=== PATIENT | male | born 1950 | race Caucasian/White ===

== ENCOUNTER 2021-11-11 19:13 | Emergency (ER) | payer MEDICARE, SELFPAY ==
[2021-11-11 19:14] VITALS: BP 98/74; PULSE 95; RESP 18; TEMP 35.9; O2SAT 95; BMI 24.3
--- NOTE | 2021-11-11 19:20 | RAD_ITS ---
EXAM: XR LEFT FOOT COMPLETE, 3 OR MORE VIEWS CLINICAL INDICATION: PAIN TECHNIQUE: Frontal, lateral and oblique views of the left foot. This report was created using [employer] report generation technology. COMPARISON: None. FINDINGS: BONES/JOINTS: Metatarsophalangeal arthrosis of the first digit. There is an enthesophyte involving the posterior superior calcaneus at the site of insertion of the Achilles tendon. No acute fracture. No subluxation. Normal alignment. Preservation of the joint space. No sclerotic or destructive changes observed. SOFT TISSUES: Unremarkable. No soft tissue swelling or gas. No radiopaque foreign body. RAD/Foot min 3 Views IMPRESSION: Metatarsophalangeal arthrosis of the first digit. Electronically Signed: Len Platt MD at 19:54 EDT Reading Location ID and State: [facility] / [place] , Service support ,
--- NOTE | 2021-11-11 21:06 | ED.VIS.LOWEX ---
HPI History of Present Illness Chief Complaint: Lower Extremity Injury Narrative Narrative: 70-year-old male presenting with left toe pain. He states that he initially had a excoriation on the left toe which was seen by urgent care. He was on Keflex and this improved however when he finished the Keflex he got worse. He did not follow-up with his primary care physician. He denies any systemic signs or symptoms. He states that his left small toenail is digging into the left second toe on his foot. He states has been trying to change his boots but this is not helping. He has a previous abscessed area on the calcaneus which is healed. PFSH PFSH Home Medications doxycycline hyclate 100 mg PO BID #14 cap 11/11/21 [Rx Last Taken Unknown] Allergy/AdvReac Type Severity Reaction Status Date / Time No Known Allergies Allergy Verified 11/11/21 19:18 ROS ROS ED Constitutional Constitutional ED: Denies chills or fever(s) Eyes Eyes: Denies blurry vision or change in vision ENT ENT ED: Denies rhinorrhea or sore throat Cardiovascular Cardiovascular: Denies chest pain or palpitations Respiratory/Chest Respiratory/Chest: Denies cough or dyspnea Gastrointestinal Gastrointestinal: Denies abdominal pain or nausea Genitourinary Genitourinary ED: Denies dysuria or hematuria Musculoskeletal Musculoskeletal: Denies arthralgias or myalgias Integumentary Reports rash and other Details: Left fourth and fifth toe pain Neurologic Neurologic: Denies headache(s) or weakness EXAM Physical Exam Const Vital Signs: 11/11/21 19:14 Temperature 96.6 F L Temperature Source Temporal Pulse Rate 95 Respiratory Rate 18 Blood Pressure 98/74 Blood Pressure Mean 82 Pulse Ox 95 Oxygen Delivery Method Room Air Positive well nourished General Appearance ED: NAD HEENT normocephalic and atraumatic Resp normal respiratory effort Cardio regular rate and regular rhythm Extremity Extremity Narrative: Left fifth toe erythematous medially. The toenail is intact. There is no fluctuance. The left fifth toe on the lateral aspect is irritated. No bony tenderness to the left foot is neurovascularly intact brisk cap refill to all 5 toes. Neuro oriented x3 Sensorium / Orientation: alert MDM MDM MDM Narrative Medical decision making narrative: Patient presenting with infection of the left fifth toe. There is no abscess or need for drainage. X-ray of the left foot on my interpretation shows no acute fracture or subluxation. Patient counseled on warm water soaks with soapy water and I will start him on a new antibiotic as this is returned. Patient will be given follow-up with podiatry. He is amenable this plan. Patient discharged in stable condition. Impression: 1. Left foot cellulitis Radiography Diagnostic Testing: Clinical Impression(s) from Imaging Studies Foot X-Ray 11/11/21 19:20 IMPRESSION: Metatarsophalangeal arthrosis of the first digit. Electronically Signed: Len Platt MD at 19:54 EDT Reading Location ID and State: [facility] / [place] , Service support , Discharge Plan Triage Chief Complaint: Lower Extremity Injury ED Provider: Mak Robb Dx/Rx/DC Orders Instructions: ED Cellulitis Prescriptions: New doxycycline hyclate 100 mg capsule 100 mg PO BID Qty: 14 RF: 0 Primary Care Provider: NOT,DEFINED Referrals: Robert Mccormick DPM [STAFF PHYSICIAN] - As soon as possible NOT,DEFINED [Primary Care Provider] - Disposition Disposition: Home, Self Care
[2021-11-11] MEDS: Doxycycline 100 MG CAPSULE PO (21:21)
== END 2021-11-11 21:20 | disposition home or self-care (01) ==
LOC: ED 21:29
PROVIDERS: Emergency Provider Student in an Organized Health Care Education/Training Program; Visit Provider Student in an Organized Health Care Education/Training Program
DX: L03.116 Cellulitis of left lower limb (principal); L03.032 Cellulitis of left toe
CPT/HCPCS: 73630; 99283

== ENCOUNTER 2021-12-09 16:48 | Outpatient (CLI) | payer MEDICARE, SELFPAY ==
--- NOTE | 2021-12-09 16:50 | CT_ITS ---
EXAM: CT ANGIOGRAPHY ABDOMEN AND PELVIS WITH RUNOFF TO THE LOWER EXTREMITIES WITH INTRAVENOUS CONTRAST CLINICAL INDICATION: ATHEROSCLEROSIS TECHNIQUE: Helically acquired angiography images were obtained of the abdomen, pelvis and lower extremities with intravenous contrast using CTA runoff protocol. This CT exam was performed using one or more of the following dose reduction techniques: automated exposure control, adjustment of the mA and/or kV according to patient size, and/or use of iterative reconstruction technique. This report was created using [employer] report generation technology. MIP reconstructed images were created and reviewed. CONTRAST: IV 100mL Isovue-370 RADIATION DOSE: CTDIvol = 7.24 mGy, DLP = 1100.95 mGy-cm. COMPARISON: None. FINDINGS: VASCULATURE: AORTA: Diffuse atherosclerotic changes of the aorta. There is a focal stenosis greater than 50% involving the aorta about 5 cm below the renal arteries with severe atherosclerotic changes below this to the level of the common iliac arteries. Normal caliber abdominal aorta. No dissection. CELIAC TRUNK AND MESENTERIC ARTERIES: No acute findings. No occlusion or significant stenosis. No dissection. RENAL ARTERIES: No acute findings. No occlusion or significant stenosis. No dissection. RIGHT ILIAC ARTERIES: Severe atherosclerotic changes of the right common iliac artery with a focal area measuring greater than 50% stenosis. Focal area in the proximal right external iliac artery with greater than 50% stenosis. RIGHT FEMORAL/POPLITEAL ARTERIES: High-grade stenosis of the right common femoral artery with complete occlusion of the right superficial femoral artery. Reconstitution of the right popliteal artery in the popliteal fossa. Normal runoff of the right anterior tibial artery. No runoff in the posterior tibial and peroneal arteries. There is some reconstitution of the right peroneal artery distally. RIGHT CALF/FOOT ARTERIES: See above. LEFT ILIAC ARTERIES: Moderate to severe atherosclerotic changes left common iliac artery without hemodynamically significant stenosis. Moderate atherosclerotic changes of the left external iliac artery with complete occlusion of the distal left external iliac artery and left common femoral artery. Reconstitution of the deep femoral artery through collaterals. Complete occlusion of the left superficial femoral artery. LEFT FEMORAL/POPLITEAL ARTERIES: Reconstitution of the left popliteal artery in the popliteal fossa. LEFT CALF/FOOT ARTERIES: Occlusion of the left anterior tibial artery proximally. Normal runoff of the left posterior tibial and left peroneal arteries. Reconstitution of the left anterior tibial artery just above the ankle. Left dorsalis pedis artery not visualized. LOWER THORAX: Unremarkable. Lung bases are clear. No cardiomegaly. No significant pericardial effusion. ABDOMEN: LIVER: Unremarkable. Homogeneous. No focal mass. GALLBLADDER AND BILE DUCTS: Unremarkable. No calcified gallstones. No gallbladder distention or wall edema. No intra- or extrahepatic biliary ductal dilation. PANCREAS: Unremarkable. No focal cystic or solid mass. SPLEEN: Unremarkable. Normal size without focal cystic or solid mass. ADRENALS: Unremarkable. No nodules. KIDNEYS AND URETERS: Unremarkable. Normal renal size and position. No hydronephrosis. STOMACH AND BOWEL: Unremarkable. No stomach or bowel distention. No focal inflammatory change. PELVIS: APPENDIX: No evidence of acute appendicitis. BLADDER: Unremarkable. REPRODUCTIVE: Unremarkable as visualized. No mass. ABDOMEN, PELVIS and LOWER EXTREMITIES: INTRAPERITONEAL SPACE: Unremarkable. No ascites or other fluid collection. No free air. BONES/JOINTS: Unremarkable. No suspicious lytic or blastic abnormality. SOFT TISSUES: Unremarkable. No discrete abdominal or pelvic wall hernia. LYMPH NODES: Unremarkable. No enlarged lymph nodes. CT/CTA Abd w/Runoff W/WO Contrast IMPRESSION: 1. Diffuse severe atherosclerotic changes of the infrarenal abdominal aorta with a focal area of stenosis greater than 50%. 2. Severe atherosclerotic changes of the right common iliac artery with a focal area measuring greater than 50% stenosis. 3. Focal area of greater than 50% stenosis in the proximal right external iliac artery. 4. High-grade stenosis of the right common femoral artery with complete occlusion of the right superficial femoral artery. Reconstitution of the right popliteal artery in the popliteal fossa. Normal runoff in the right anterior tibial artery with no runoff in the posterior tibial and peroneal arteries. It is some reconstitution of the right peroneal artery distally. 5. Complete occlusion of the distal left external iliac artery and left common femoral artery. Reconstitution of the deep femoral artery through collaterals. Complete occlusion of the left superficial femoral artery. Reconstitution of the left popliteal artery and the popliteal fossa. Occlusion of the left anterior tibial artery proximally. Normal runoff of the left posterior tibial and left peroneal arteries. Reconstitution of the left anterior tibial artery just above the ankle. Left dorsalis pedis artery is not visualized. Electronically Signed: Alberto Tong MD at 4:58 EDT ,
[2021-12-09 17:16] LABS: CREATININE FINGERSTICK 0.9 mg/dL (0.70-1.30); EGFR FINGERSTICK > 60.0000 mL/min (>60)
== END 2021-12-09 23:59 | disposition home or self-care (01) ==
LOC: CT 16:49
PROVIDERS: PCP Clinical Nurse Specialist; Visit Provider Surgery Vascular Surgery
DX: I70.213 Atherosclerosis of native arteries of extremities with intermittent claudication, bilateral legs (principal); I77.4 Celiac artery compression syndrome; I21.3 ST elevation (STEMI) myocardial infarction of unspecified site
CPT/HCPCS: 75635; Q9967; A4216

== ENCOUNTER 2021-12-17 10:15 | Outpatient (RCR) | payer MEDICARE, SELFPAY ==
[2021-12-05 10:06] VITALS: BP 145/70; PULSE 94; TEMP 35.8
--- NOTE | 2021-12-05 11:07 | PCM.WC.HP ---
History of Present Illness Date of Service: 12/05/21 Progress of Wound: This 71-year-old male is being seen for chronic lower extremity ulcerations on the left side secondary to severe peripheral arterial disease that is chronic in nature. Patient was evaluated by vascular surgeon in [place] who noted that he had 20% blood flow on the left lower extremity. Patient is awaiting CTA to further evaluate the level of blood flow to the lower left lower extremity. Patient had non invasive vascular studies performed at that time. Patient has a long-term history of smoking but reports he is down to 2 cigarettes a day and is further attempting to quit. Patient is a former alcoholic, but no longer drinks. Patient denies any pain at rest or to the wound sites. Patient denies any constitutional symptoms at this time. Patient has been cleaning the area with antibacterial soap and drying it off and applying Betadine to keep the wound site stable. Patient notes that he has not been offloading his left lower extremity despite having a heel ulceration and left fifth toe ulceration while at home, but notes that he only ambulates from the couch to the kitchen and bathroom. No other complaints at this time. [facility] Home Medications doxycycline hyclate 100 mg PO BID #14 cap 11/11/21 [Rx Last Taken Unknown] aspirin 325 mg PO DAILY 12/05/21 [History Last Taken Unknown] Allergy/AdvReac Type Severity Reaction Status Date / Time No Known Allergies Allergy Verified 11/11/21 19:18 Social History Smoking Status: Current every day smoker tobacco type: cigarettes Vital Signs Vital Signs Vital Signs: 12/05/21 10:06 Temperature 96.5 F L Temperature Source Temporal Pulse Rate 94 Blood Pressure 145/70 H Blood Pressure Mean 95 Blood Pressure Source Monitor Blood Pressure Position Sitting Blood Pressure Location Right Arm Physical Exam Narrative Patient alert oriented person place time. Patient ambulates unassisted and normal shoe gear without antalgia. Vascular: There atrophic skin changes to bilateral feet with skin thinning shiny appearance dry skin. Diminished digital hair growth noted bilaterally. Ischemic changes noted to the left fifth digit left plantar heel and multiple focal ulcerations to left leg. Neurologic: Light touch protective sensation intact to bilateral feet. Dermatologic: Full-thickness ulceration to plantar left heel, necrotic distal tuft of left fifth digit, multiple focal punctate ulcerations to left leg. No acute signs of infection at this time. No evidence of deep probing to any of the wound sites. Musculoskeletal: Good strength fold of bilateral lower extremity compartments. No gross deformity contributing to wound formation. No pain with calf squeeze of bilateral lower extremity. Debridement Note Debridement Note Post-Debridement Measurements and Additional Note: Post-Debridement Measurements/Treatment - Nurse 1 - General Ulcer Assessment Start: 12/05/21 10:05 Freq: Status: Active Protocol: SANDRA Activity Type Activity Date Activity User E-Sign Co-Sign Detail Recorded Client Recorded Date Recorded By Document 12/05/21 10:06 TOÑITO [id number] 12/05/21 10:24 KR 12/05/21 10:06 - Today's Visit Information Type of service Initial Visit Patient Identification Verified (Name & Yes ) Vital Signs Temperature (97.8 F-99.1 F) 96.5 F L Temperature Source Temporal Pulse Rate (60-100) 94 Pulse Location Monitor Blood Pressure (90/60-120/80) 145/70 H Blood Pressure Mean 95 Source Monitor Position Sitting Blood Pressure Location Right Arm History Since Last Visit- (Skip if this is Patient's initial visit) Have you changed medications since your No last visit? Any new allergies or adverse reactions No Had a fall/change in ADL's that may No increase risk of falls Signs or symptoms of abuse and/or No neglect since last visit Has dressing in place as prescribed Yes Has compression in place as prescribed N/A Has offloadiing in place as prescribed N/A Experienced any changes in pain level or No management Left Footwear Regular Shoe Right Footwear Regular Shoe Pain Scale: 0-10 Numeric Is Patient Pain Free? Yes [facility] Nurse 1 - General Ulcer Measurement Start: 12/05/21 10:05 Freq: Status: Active Protocol: Activity Type Activity Date Activity User E-Sign Co-Sign Detail Recorded Client Recorded Date Recorded By Document 12/05/21 10:06 TOÑITO [id number] 12/05/21 10:24 KR 12/05/21 10:06 Wound Center Nurse 1 #6 left Med Lower Leg -Current Size (cm) - Length 0.6 -Current Size (cm) - Width 0.6 -Current Size (cm) - Depth 0.1 -Total Square Cm 0.36 -Exudate Amt None Present -Wound Margin Distinct, Outline Attached -Granulation Amt None Present (0 %) -Necrosis Amt None Present (0 %) -Texture (Ella-wound Skin Appearance) Assessed, Scarring -Moisture (Ella-wound Skin Appearance) Assessed,Dry/ Scaly -Color (Ella-wound Skin Appearance) Assessed, Erythema -Temperature (Ella-wound Skin No Abnormality Appearance) (Pt Warm) -Tenderness on Palpation (Ella-wound Yes Skin Appearance) -Anesthetic Used 5% Lidocaine Gel #5 left [place] -Current Size (cm) - Length 0.6 -Current Size (cm) - Width 0.6 -Current Size (cm) - Depth 0.1 -Total Square Cm 0.36 -Exudate Amt None Present -Wound Margin Distinct, Outline Attached -Granulation Amt None Present (0 %) -Necrosis Amt None Present (0 %) -Texture (Ella-wound Skin Appearance) Assessed, Scarring -Moisture (Ella-wound Skin Appearance) Assessed -Color (Ella-wound Skin Appearance) Erythema -Temperature (Ella-wound Skin No Abnormality Appearance) (Pt Warm) -Tenderness on Palpation (Ella-wound No Skin Appearance) -Ulcer Cleansing Rinsed/ Irrigated with Saline -Foul Odor after Cleansing No -Anesthetic Used 5% Lidocaine Gel #4 Left Anterior Ankle -Current Size (cm) - Length 0.8 -Current Size (cm) - Width 0.2 -Current Size (cm) - Depth 0.1 -Total Square Cm 0.16 -Wound Margin Distinct, Outline Attached -Granulation Amt None Present (0 %) -Necrosis Amt None Present (0 %) -Texture (Ella-wound Skin Appearance) Assessed, Scarring -Color (Ella-wound Skin Appearance) No Abnormality, Erythema -Temperature (Ella-wound Skin No Abnormality Appearance) (Pt Warm) -Tenderness on Palpation (Ella-wound No Skin Appearance) -Ulcer Cleansing Rinsed/ Irrigated with Saline -Foul Odor after Cleansing No -Anesthetic Used 5% Lidocaine Gel #3 5th Toe Dorsal -Current Size (cm) - Length 0.8 -Current Size (cm) - Width 0.8 -Current Size (cm) - Depth 0.1 -Total Square Cm 0.64 -Exudate Amt None Present -Wound Margin Distinct, Outline Attached -Granulation Amt None Present (0 %) -Necrosis Amt None Present (0 %) -Texture (Ella-wound Skin Appearance) Assessed, Scarring -Moisture (Ella-wound Skin Appearance) Assessed,Dry/ Scaly -Color (Ella-wound Skin Appearance) No Abnormality, Assessed -Temperature (Ella-wound Skin No Abnormality Appearance) (Pt Warm) -Tenderness on Palpation (Ella-wound No Skin Appearance) -Ulcer Cleansing Soap and Water -Foul Odor after Cleansing No -Anesthetic Used 5% Lidocaine Gel #2 5th toe -Current Size (cm) - Length 1 -Current Size (cm) - Width 0.8 -Current Size (cm) - Depth 0.1 -Total Square Cm 0.8 -Exudate Amt None Present -Wound Margin Distinct, Outline Attached -Necrosis Amt Large (67-100%) -Necrotic Tissue Type Eschar -Texture (Ella-wound Skin Appearance) Assessed, Scarring -Moisture (Ella-wound Skin Appearance) No Abnormality, Assessed -Color (Ella-wound Skin Appearance) No Abnormality, Assessed -Temperature (Ella-wound Skin No Abnormality Appearance) (Pt Warm) -Tenderness on Palpation (Ella-wound No Skin Appearance) -Ulcer Cleansing Soap and Water -Foul Odor after Cleansing No -Anesthetic Used 5% Lidocaine Gel #1 Left Heel -Current Size (cm) - Length 0.6 -Current Size (cm) - Width 1 -Current Size (cm) - Depth 0.6 -Total Square Cm 0.6 -Exudate Amt Small -Exudate Type Serosanguineous -Wound Margin Distinct, Outline Attached -Granulation Amt Small (1-33%) -Granulation Quality Pabellones -Necrosis Amt Medium (34-66%) -Necrotic Tissue Type Adherent Slough -Texture (Ella-wound Skin Appearance) Assessed, Scarring -Moisture (Ella-wound Skin Appearance) No Abnormality, Assessed -Color (Ella-wound Skin Appearance) No Abnormality, Assessed -Temperature (Ella-wound Skin No Abnormality Appearance) (Pt Warm) -Tenderness on Palpation (Ella-wound No Skin Appearance) -Ulcer Cleansing Soap and Water -Foul Odor after Cleansing No -Anesthetic Used 5% Lidocaine Gel WC - Nurse 2 - General Ulcer CM Notes Start: 12/05/21 10:05 Freq: Status: Active Protocol: Activity Type Activity Date Activity User E-Sign Co-Sign Detail Recorded Client Recorded Date Recorded By Document 12/05/21 10:46 MW [id number] 12/05/21 10:54 MW 12/05/21 10:46 Wound Center Nurse 2 #6 left Med Lower Leg -Time 10:48 -Correct Patient Yes -Correct Side, Site, Position Yes -Correct Procedure Yes -Procedure Performed No -Tunneling No -Undermining/Tunneling No -Circular Undermining No -Wound/Ulcer Outcome Not Healed #5 left [place] -Time 10:48 -Correct Patient Yes -Correct Side, Site, Position Yes -Correct Procedure Yes -Procedure Performed No -Tunneling No -Undermining/Tunneling No -Circular Undermining No -Wound/Ulcer Outcome Not Healed -Foul Odor after Cleansing No -Bioengineered Tissue No #4 Left Anterior Ankle -Time 10:49 -Correct Patient Yes -Correct Side, Site, Position Yes -Correct Procedure Yes -Procedure Performed No -Tunneling No -Undermining/Tunneling No -Circular Undermining No -Wound/Ulcer Outcome Not Healed #3 5th Toe Dorsal -Time 10:49 -Correct Patient Yes -Correct Side, Site, Position Yes -Correct Procedure Yes -Procedure Performed No -Tunneling No -Undermining/Tunneling No -Circular Undermining No -Wound/Ulcer Outcome Not Healed #2 5th toe -Time 10:49 -Correct Patient Yes -Correct Side, Site, Position Yes -Correct Procedure Yes -Procedure Performed No -Tunneling No -Undermining/Tunneling No -Circular Undermining No -Wound/Ulcer Outcome Not Healed #1 Left Heel -Time 10:49 -Correct Patient Yes -Correct Side, Site, Position Yes -Correct Procedure Yes -Procedure Performed No -Tunneling No -Undermining/Tunneling No -Circular Undermining No -Wound/Ulcer Outcome Not Healed Pain Scale: 0-10 Numeric Is Patient Pain Free? Yes Assessment/Plan Assessment/Plan (1) Peripheral vascular disease, unspecified: CODE(S): I73.9 - Peripheral vascular disease, unspecified PLAN: Patient examined and evaluated, all findings discussed with patient in detail. Radiographs reviewed no evidence of acute bony infection. Patient had noninvasive vascular studies and vascular surgeon's office approximately 2 weeks ago, patient is awaiting CT angiography of his left lower extremity as he has severe left lower extremity arterial disease. We will plan to have patient follow-up with Dr. Coon as appears to have been some logistical issues with scheduling the test. The wounds at this time of fear appears stable in nature. I have recommended protective weightbearing in a surgical shoe assisted by a walker, patient defers walker and is requesting a cane. Prescription for a cane dispensed. I have recommended continued smoking cessation. We will await vascular recommendation and avoid any debridement until a decision has been made. It is possible that based on the patient's vascular disease he may require a more proximal amputation. Until that time we will keep the wound stable using Betadine paint and DSD with daily cleansing. Patient will follow up in 2 weeks to ensure that no acute infection develops. (2) Dry gangrene: CODE(S): I96 - Gangrene, not elsewhere classified (3) Non-pressure chronic ulcer of other part of left foot with fat layer exposed: CODE(S): L97.522 - Non-pressure chronic ulcer of other part of left foot with fat layer exposed
--- NOTE | 2021-12-05 12:15 | WC ---
Spoke to Sarah nurse at Dr. Pabon office concerning a CTA he ordered. They received an approval authorization #[id number] good through 12/04/21 to 02/02/22. Approval for the CTA was faxed to [facility] per Sarah. Dr. Walters informed of CTA approval. Spoke to patient and patient's daughter Anjelica to inform her of test approved. Stated she will call [facility] to get this test scheduled BENNIE. Patient will follow up with Dr. Pabon in [place] as soon as test is completed.
[2021-12-17 10:31] VITALS: BP 114/72; PULSE 74; RESP 16; TEMP 35.4
--- NOTE | 2021-12-17 11:19 | PN.PCM_ITS ---
History of Present Illness Date of Service: 12/17/21 Progress of Wound: This 71-year-old male is being seen for chronic lower extremity ulcerations on the left side secondary to severe peripheral arterial disease that is chronic in nature. Patient was evaluated by vascular surgeon in [place] who noted that he had 20% blood flow on the left lower extremity. Patient underwent CTA to further evaluate the level of blood flow to the lower left lower extremity. Patient has a follow-up with vascular surgery on Thursday12/20/2021. Patient has a long-term history of smoking but reports he is down to 2 cigarettes a day and is further attempting to quit. Patient is a former alcoholic, but no longer drinks. Patient denies any pain at rest or to the wound sites. Patient denies any constitutional symptoms at this time. Patient has been cleaning the area with antibacterial soap and drying it off and applying Betadine to keep the wound site stable. Patient notes that he has not been offloading his left lower extremity despite having a heel ulceration and left fifth toe ulceration while at home, but notes that he only ambulates from the couch to the kitchen and bathroom. No other complaints at this time. Objective Data Objective Data Vital Signs: Vital Signs Temp Pulse Resp BP 95.7 F L 74 16 114/72 12/17/21 10:31 12/17/21 10:31 12/17/21 10:31 12/17/21 10:31 Oxygen Delivery Method Room Air Physical Exam Narrative Patient alert oriented person place time. Patient ambulates unassisted and normal shoe gear without antalgia. Vascular: There atrophic skin changes to bilateral feet with skin thinning shiny appearance dry skin. Diminished digital hair growth noted bilaterally. Ischemic changes noted to the left fifth digit left plantar heel and multiple focal ulcerations to left leg. Nonpalpable, nondopplerable pulses. Neurologic: Light touch protective sensation intact to bilateral feet. Dermatologic: Full-thickness ulceration to plantar left heel, necrotic distal tuft of left fifth digit, multiple focal punctate ulcerations to left leg. No acute signs of infection at this time. No evidence of deep probing to any of the wound sites. Musculoskeletal: Good strength fold of bilateral lower extremity compartments. No gross deformity contributing to wound formation. No pain with calf squeeze of bilateral lower extremity. Debridement Note Debridement Note Post-Debridement Measurements and Additional Note: Post-Debridement Measuremen ts/Treatment WC - Nurse 1 - General Ulcer Assessment Start: 12/05/21 10:05 Freq: Status: Active Protocol: SANDRA Activity Type Activity Date Activity User E-Sign Co-Sign Detail Recorded Client Recorded Date Recorded By Document 12/05/21 10:06 TOÑITO [id number] 12/05/21 10:24 KR Document 12/17/21 10:31 [facility] [id number] 12/17/21 10:47 [facility] 12/05/21 12/17/21 10:06 10:31 WC - Today's Visit Information Type of service Initial Visit Follow-up Visit (Physician/[employer] ) Arrival Mode Ambulatory Transfer Assistance None Accompanied by daughterdilshad Patient Identification Verified (Name & Yes Yes ) Patient Requires Transmission-Based No Precautions Vital Signs Temperature (97.8 F-99.1 F) 96.5 F L 95.7 F L Temperature Source Temporal Temporal Pulse Rate (60-100) 94 74 Pulse Location Monitor Monitor Respiratory Rate (12-18) 16 Respiratory rate source Observation Oxygen Delivery Method Room Air Blood Pressure (90/60-120/80) 145/70 H 114/72 Blood Pressure Mean (mm Hg) 95 86 Source Monitor Monitor Position Sitting Sitting Blood Pressure Location Right Arm Left Arm History Since Last Visit- (Skip if this is Patient's initial visit) Have you changed medications since your No No last visit? Any new allergies or adverse reactions No No Had a fall/change in ADL's that may No No increase risk of falls Signs or symptoms of abuse and/or No No neglect since last visit Have you been in the hospital since your No last visit? Has dressing in place as prescribed Yes Has compression in place as prescribed N/A Has offloadiing in place as prescribed N/A Experienced any changes in pain level or No management Left Footwear Regular Shoe Regular Shoe Right Footwear Regular Shoe Regular Shoe Pain Scale: 0-10 Numeric Is Patient Pain Free? Yes Yes - Nurse 1 - General Ulcer Measurement Start: 12/05/21 10:05 Freq: Status: Active Protocol: Activity Type Activity Date Activity User E-Sign Co-Sign Detail Recorded Client Recorded Date Recorded By Document 12/05/21 10:06 TOÑITO [id number] 12/05/21 10:24 KR Document 12/17/21 10:31 [facility] [id number] 12/17/21 10:47 [facility] 12/05/21 12/17/21 10:06 10:31 Wound Center Nurse 1 #6 left Med Lower Leg -Combined with other wound No -Current Size (cm) - Length 0.6 0.5 -Current Size (cm) - Width 0.6 0.6 -Current Size (cm) - Depth 0.1 0.1 -Total Square Cm 0.36 0.30 -Photo Taken No -Epithelialization None Present -Tunneling No -Undermining/Tunneling No -Circular Undermining No -Exudate Amt None Present None Present -Wound Margin Distinct, Distinct, Outline Outline Attached Attached -Granulation Amt None Present (0 None Present (0 %) %) -Slough/Fibrin Yes -Necrosis Amt None Present (0 Large (67-100%) %) -Necrotic Tissue Type Eschar -Texture (Ella-wound Skin Appearance) Assessed, Assessed, Scarring Scarring -Moisture (Ella-wound Skin Appearance) Assessed,Dry/ Assessed Scaly -Color (Ella-wound Skin Appearance) Assessed, Assessed Erythema -Temperature (Ella-wound Skin No Abnormality No Abnormality Appearance) (Pt Warm) (Pt Warm) -Tenderness on Palpation (Ella-wound Yes Yes Skin Appearance) -Ulcer Cleansing Soap and Water -Foul Odor after Cleansing No -Anesthetic Used 5% Lidocaine 4% Lidocaine Gel Solution #5 left [place] -Combined with other wound No -Current Size (cm) - Length 0.6 0.1 -Current Size (cm) - Width 0.6 0.1 -Current Size (cm) - Depth 0.1 0.1 -Total Square Cm 0.36 0.01 -Epithelialization Large 67-100% -Exudate Amt None Present -Wound Margin Distinct, Outline Attached -Granulation Amt None Present (0 %) -Necrosis Amt None Present (0 %) -Texture (Ella-wound Skin Appearance) Assessed, Assessed, Scarring Scarring -Moisture (Lela-wound Skin Appearance) Assessed Assessed,Dry/ Scaly -Color (Ella-wound Skin Appearance) Erythema Assessed -Temperature (Ella-wound Skin No Abnormality Appearance) (Pt Warm) -Tenderness on Palpation (Ella-wound No Skin Appearance) -Ulcer Cleansing Rinsed/ Irrigated with Saline -Foul Odor after Cleansing No -Anesthetic Used 5% Lidocaine Gel #4 Left Anterior Ankle -Combined with other wound No -Current Size (cm) - Length 0.8 0.1 -Current Size (cm) - Width 0.2 0.1 -Current Size (cm) - Depth 0.1 0.1 -Total Square Cm 0.16 0.01 -Epithelialization Large 67-100% -Wound Margin Distinct, Outline Attached -Granulation Amt None Present (0 %) -Necrosis Amt None Present (0 %) -Texture (Ella-wound Skin Appearance) Assessed, Assessed, Scarring Scarring -Moisture (Ella-wound Skin Appearance) Assessed -Color (Ella-wound Skin Appearance) No Abnormality, Assessed Erythema -Temperature (Ella-wound Skin No Abnormality No Abnormality Appearance) (Pt Warm) (Pt Warm) -Tenderness on Palpation (Ella-wound No No Skin Appearance) -Ulcer Cleansing Rinsed/ Soap and Water Irrigated with Saline -Foul Odor after Cleansing No No -Anesthetic Used 5% Lidocaine 4% Lidocaine Gel Solution #3 5th Toe Dorsal -Combined with other wound No -Current Size (cm) - Length 0.8 0.1 -Current Size (cm) - Width 0.8 0.1 -Current Size (cm) - Depth 0.1 0.1 -Total Square Cm 0.64 0.01 -Epithelialization Large 67-100% -Exudate Amt None Present -Wound Margin Distinct, Outline Attached -Granulation Amt None Present (0 %) -Necrosis Amt None Present (0 %) -Texture (Ella-wound Skin Appearance) Assessed, Scarring -Moisture (Ella-wound Skin Appearance) Assessed,Dry/ Scaly -Color (Ella-wound Skin Appearance) No Abnormality, Assessed -Temperature (Ella-wound Skin No Abnormality Appearance) (Pt Warm) -Tenderness on Palpation (Ella-wound No Skin Appearance) -Ulcer Cleansing Soap and Water -Foul Odor after Cleansing No -Anesthetic Used 5% Lidocaine Gel #2 5th toe -Combined with other wound No -Current Size (cm) - Length 1 0.6 -Current Size (cm) - Width 0.8 0.6 -Current Size (cm) - Depth 0.1 0.3 -Total Square Cm 0.8 0.36 -Photo Taken No -Epithelialization None Present -Tunneling No -Undermining/Tunneling No -Circular Undermining No -Exudate Amt None Present Medium -Exudate Type Serous -Wound Margin Distinct, Distinct, Outline Outline Attached Attached -Granulation Amt Small (1-33%) -Granulation Quality Red -Slough/Fibrin Yes -Necrosis Amt Large (67-100%) Large (67-100%) -Necrotic Tissue Type Eschar Adherent Slough -Texture (Ella-wound Skin Appearance) Assessed, Assessed, Scarring Scarring -Moisture (Ella-wound Skin Appearance) No Abnormality, Assessed,Dry/ Assessed Scaly -Color (Ella-wound Skin Appearance) No Abnormality, Assessed, Assessed Erythema -Temperature (Ella-wound Skin No Abnormality No Abnormality Appearance) (Pt Warm) (Pt Warm) -Tenderness on Palpation (Ella-wound No Yes Skin Appearance) -Ulcer Cleansing Soap and Water Soap and Water -Foul Odor after Cleansing No No -Anesthetic Used 5% Lidocaine 4% Lidocaine Gel Solution -Wound Comment(s) difficult to assess, pt kept moving his foot #1 Left Heel -Combined with other wound No -Current Size (cm) - Length 0.6 0.4 -Current Size (cm) - Width 1 0.7 -Current Size (cm) - Depth 0.6 0.5 -Total Square Cm 0.6 0.28 -Photo Taken No -Epithelialization None Present -Tunneling No -Undermining/Tunneling No -Circular Undermining No -Exudate Amt Small Medium -Exudate Type Serosanguineous Serous -Wound Margin Distinct, Distinct, Outline Outline Attached Attached -Granulation Amt Small (1-33%) Medium (34-66%) -Granulation Quality Kathleen Red -Slough/Fibrin Yes -Necrosis Amt Medium (34-66%) Medium (34-66%) -Necrotic Tissue Type Adherent Slough Adherent Slough -Texture (Ella-wound Skin Appearance) Assessed, Assessed, Scarring Scarring -Moisture (Ella-wound Skin Appearance) No Abnormality, Assessed, Assessed Maceration -Color (Ella-wound Skin Appearance) No Abnormality, Assessed,Palor Assessed -Temperature (Ella-wound Skin No Abnormality No Abnormality Appearance) (Pt Warm) (Pt Warm) -Tenderness on Palpation (Ella-wound No Yes Skin Appearance) -Ulcer Cleansing Soap and Water Soap and Water -Foul Odor after Cleansing No No -Anesthetic Used 5% Lidocaine 4% Lidocaine Gel Solution -Wound Comment(s) difficult to assess, pt kept moving his foot WC - Nurse 2 - General Ulcer CM Notes Start: 12/05/21 10:05 Freq: Status: Active Protocol: Activity Type Activity Date Activity User E-Sign Co-Sign Detail Recorded Client Recorded Date Recorded By Document 12/05/21 10:46 MW [id number] 12/05/21 10:54 MW Document 12/17/21 10:52 [id number] 12/17/21 11:00 JF 12/05/21 12/17/21 10:46 10:52 Wound Center Nurse 2 #6 left Med Lower Leg -Time 10:48 -Correct Patient Yes No -Correct Side, Site, Position Yes No -Correct Procedure Yes No -Procedure Performed No No -Tunneling No -Undermining/Tunneling No -Circular Undermining No -Wound/Ulcer Outcome Not Healed Not Healed #5 left [place] -Time 10:48 -Correct Patient Yes No -Correct Side, Site, Position Yes No -Correct Procedure Yes No -Procedure Performed No No -Tunneling No -Undermining/Tunneling No -Circular Undermining No -Wound/Ulcer Outcome Not Healed Not Healed -Foul Odor after Cleansing No -Bioengineered Tissue No #4 Left Anterior Ankle -Time 10:49 -Correct Patient Yes No -Correct Side, Site, Position Yes No -Correct Procedure Yes No -Procedure Performed No No -Tunneling No -Undermining/Tunneling No -Circular Undermining No -Wound/Ulcer Outcome Not Healed Not Healed #3 5th Toe Dorsal -Time 10:49 -Correct Patient Yes No -Correct Side, Site, Position Yes No -Correct Procedure Yes No -Procedure Performed No No -Tunneling No -Undermining/Tunneling No -Circular Undermining No -Wound/Ulcer Outcome Not Healed Not Healed #2 5th toe -Time 10:49 -Correct Patient Yes No -Correct Side, Site, Position Yes No -Correct Procedure Yes No -Procedure Performed No No -Tunneling No -Undermining/Tunneling No -Circular Undermining No -Wound/Ulcer Outcome Not Healed Not Healed #1 Left Heel -Time 10:49 -Correct Patient Yes No -Correct Side, Site, Position Yes No -Correct Procedure Yes No -Procedure Performed No No -Tunneling No -Undermining/Tunneling No -Circular Undermining No -Wound/Ulcer Outcome Not Healed Not Healed Pain Scale: 0-10 Numeric Is Patient Pain Free? Yes Yes - Nurse 3 - General Ulcer D/C NN Start: 12/05/21 10:05 Freq: Status: Active Protocol: Activity Type Activity Date Activity User E-Sign Co-Sign Detail Recorded Client Recorded Date Recorded By Document 12/05/21 11:17 DL [id number] 12/05/21 11:19 DL 12/05/21 11:17 Wound Care Nurse 3 #6 left Med Lower Leg -Ulcer Cleansing Rinsed/ Irrigated with Saline -Foul Odor after Cleansing No -Other Dressing Betadine -Primary Dressing Covered/Secured with Dry Gauze & Roll Gauze, Secured with Tape #5 left [place] -Ulcer Cleansing Rinsed/ Irrigated with Saline -Foul Odor after Cleansing No -Other Dressing Betadine -Primary Dressing Covered/Secured with Dry Gauze & Roll Gauze, Secured with Tape #4 Left Anterior Ankle -Ulcer Cleansing Rinsed/ Irrigated with Saline -Foul Odor after Cleansing No -Other Dressing Betadine -Primary Dressing Covered/Secured with Dry Gauze & Roll Gauze, Secured with Tape #3 5th Toe Dorsal -Ulcer Cleansing Rinsed/ Irrigated with Saline -Foul Odor after Cleansing No -Other Dressing Betadine -Primary Dressing Covered/Secured with Dry Gauze & Roll Gauze, Secured with Tape #2 5th toe -Ulcer Cleansing Rinsed/ Irrigated with Saline -Foul Odor after Cleansing No -Other Dressing Betadine -Primary Dressing Covered/Secured with Dry Gauze & Roll Gauze, Secured with Tape #1 Left Heel -Ulcer Cleansing Rinsed/ Irrigated with Saline -Foul Odor after Cleansing No -Other Dressing Betadine -Primary Dressing Covered/Secured with Dry Gauze & Roll Gauze, Secured with Tape Treatment Response Procedure Tolerated Well Pain Scale: 0-10 Numeric Is Patient Pain Free? Yes WC - Visit Discharge Discharge Condition Stable Ambulatory Status Ambulatory Transportation Private Auto Assessment/Plan Assessment/Plan (1) Peripheral vascular disease, unspecified: CODE(S): I73.9 - Peripheral vascular disease, unspecified PLAN: Patient examined and evaluated, all findings discussed with patient in detail. Radiographs reviewed no evidence of acute bony infection. Patient following up with Dr. Melendez on 12/21/2019 to discuss his CTA which demonstrated multiple levels of severe atherosclerotic disease to bilateral lower extremity. He will await vascular recommendation. The wounds at this appears stable and noninfected. I have recommended protective weightbearing in a surgical shoe assisted by a walker, patient defers walker and is requesting a cane. Prescription for a cane dispensed. Prescription for handicap placard dispensed as well. I have recommended continued smoking cessation. We will await vascular recommendation and avoid any debridement until a decision has been made. It is possible that based on the patient's vascular disease he may require a more proximal amputation. Until that time we will keep the wound stable using Betadine paint and DSD with daily cleansing. Patient will follow up in 3 weeks to ensure that no acute infection develops. Patient will call our office or present to the ED if he notes any signs or symptoms of infection. Until that time we will delay any aggressive wound care management until there has been recommendations or revascularization attempt by vascular surgery. (2) Dry gangrene: CODE(S): I96 - Gangrene, not elsewhere classified (3) Non-pressure chronic ulcer of other part of left foot with fat layer exposed: CODE(S): L97.522 - Non-pressure chronic ulcer of other part of left foot with fat layer exposed
== END 2021-12-21 23:59 | disposition home or self-care (01) ==
LOC: WC 10:15
PROVIDERS: PCP Clinical Nurse Specialist; Visit Provider Podiatrist
DX: I73.9 Peripheral vascular disease, unspecified (principal); I96 Gangrene, not elsewhere classified; L97.422 Non-pressure chronic ulcer of left heel and midfoot with fat layer exposed; L97.522 Non-pressure chronic ulcer of other part of left foot with fat layer exposed; F10.21 Alcohol dependence, in remission; F17.210 Nicotine dependence, cigarettes, uncomplicated; Z79.82 Long term (current) use of aspirin; Z79.899 Other long term (current) drug therapy
CPT/HCPCS: 99203; 99213; G0463

== ENCOUNTER 2022-01-07 08:37 | Outpatient (RCR) | payer MEDICARE, SELFPAY ==
[2021-12-22 00:46] VITALS: BP 114/72; PULSE 74; RESP 16; TEMP 35.4
[2022-01-07 08:34] VITALS: BP 116/72; PULSE 85; RESP 16; TEMP 35.8
--- NOTE | 2022-01-07 09:01 | PN.PCM_ITS ---
History of Present Illness Date of Service: 01/07/22 Progress of Wound: This 71-year-old male is being seen for chronic lower extremity ulcerations on the left side secondary to severe peripheral arterial disease that is chronic in nature. Patient was evaluated by vascular surgeon in [place] who noted that he had 20% blood flow on the left lower extremity. Patient is awaiting cardiac stress test prior to left lower extremity extremity vascular intervention. Stress test is being performed tomorrow 01/08/2022. Patient does have a history of cardiac stenting approximately 1 decade prior. Patient notes significant improvement in smoking cessation as he is down to only a few cigarettes a day at this time. Patient denies any constitutional symptoms, rest pain at this time. Objective Data Objective Data Vital Signs: Vital Signs Temp Pulse Resp BP 96.5 F L 85 16 116/72 01/07/22 08:34 01/07/22 08:34 01/07/22 08:34 01/07/22 08:34 Oxygen Delivery Method Room Air Physical Exam Narrative Patient alert oriented person place time. Patient ambulates unassisted and normal shoe gear without antalgia. Vascular: There atrophic skin changes to bilateral feet with skin thinning shiny appearance dry skin. Diminished digital hair growth noted bilaterally. Ischemic changes noted to the left fifth digit left plantar heel and multiple focal ulcerations to left leg. Nonpalpable, nondopplerable pulses. Neurologic: Light touch protective sensation intact to bilateral feet. Dermatologic: Full-thickness ulceration to plantar left heel, necrotic distal tuft of left fifth digit, multiple focal punctate ulcerations to left leg. 2 left lower extremity ulcerations healed at this time. No acute signs of infection at this time. No evidence of deep probing to any of the wound sites. Musculoskeletal: Good strength fold of bilateral lower extremity compartments. No gross deformity contributing to wound formation. No pain with calf squeeze of bilateral lower extremity. Debridement Note Debridement Note Post-Debridement Measurements and Additional Note: Post-Debridement Measurements/Treatment - Nurse 1 - General Ulcer Assessment Start: 01/07/22 08:34 Freq: Status: Active Protocol: .LOWEXT Activity Type Activity Date Activity User E-Sign Co-Sign Detail Recorded Client Recorded Date Recorded By Document 01/07/22 08:34 [facility] [id number] 01/07/22 08:46 [facility] 01/07/22 08:34 - Today's Visit Information Type of service Follow-up Visit (Physician/NUCLEAR CONTROL ROOM OPERATOR ) Arrival Mode Ambulatory Transfer Assistance None Patient Identification Verified (Name & Yes ) Patient Requires Transmission-Based No Precautions Vital Signs Temperature (97.8 F-99.1 F) 96.5 F L Temperature Source Temporal Pulse Rate (60-100) 85 Pulse Location Monitor Respiratory Rate (12-18) 16 Respiratory rate source Observation Oxygen Delivery Method Room Air Blood Pressure (90/60-120/80) 116/72 Blood Pressure Mean (mm Hg) 86 Source Monitor Position Sitting Blood Pressure Location Left Arm History Since Last Visit- (Skip if this is Patient's initial visit) Have you changed medications since your No last visit? Any new allergies or adverse reactions No Had a fall/change in ADL's that may No increase risk of falls Signs or symptoms of abuse and/or No neglect since last visit Have you been in the hospital since your No last visit? Has dressing in place as prescribed Yes Has compression in place as prescribed N/A Has offloadiing in place as prescribed N/A Experienced any changes in pain level or No management Left Footwear Regular Shoe Right Footwear Regular Shoe Pain Scale: 0-10 Numeric Is Patient Pain Free? Yes - Nurse 1 - General Ulcer Measurement Start: 01/07/22 08:34 Freq: Status: Active Protocol: Activity Type Activity Date Activity User E-Sign Co-Sign Detail Recorded Client Recorded Date Recorded By Document 01/07/22 08:34 [facility] [id number] 01/07/22 08:46 [facility] 01/07/22 08:34 Wound Center Nurse 1 #6 left Med Lower Leg -Combined with other wound No -Current Size (cm) - Length 0.8 -Current Size (cm) - Width 1 -Current Size (cm) - Depth 0.2 -Total Square Cm 0.8 -Date of Last Picture (Recall this 01/07/22 field) -Photo Taken Yes -Epithelialization None Present -Tunneling No -Undermining/Tunneling No -Circular Undermining No -Exudate Amt None Present -Wound Margin Distinct, Outline Attached -Granulation Amt None Present (0 %) -Slough/Fibrin Yes -Necrosis Amt Large (67-100%) -Necrotic Tissue Type Adherent Slough -Texture (Ella-wound Skin Appearance) Assessed -Moisture (Ella-wound Skin Appearance) Assessed -Color (Ella-wound Skin Appearance) Assessed -Temperature (Ella-wound Skin No Abnormality Appearance) (Pt Warm) -Tenderness on Palpation (Ella-wound No Skin Appearance) -Ulcer Cleansing Rinsed/ Irrigated with Saline -Foul Odor after Cleansing No -Anesthetic Used 4% Lidocaine Solution #5 left [place] -Combined with other wound No -Current Size (cm) - Length 0.1 -Current Size (cm) - Width 0.1 -Current Size (cm) - Depth 0.1 -Total Square Cm 0.01 -Date of Last Picture (Recall this 01/07/22 field) -Photo Taken Yes -Epithelialization Large 67-100% -Wound Margin Distinct, Outline Attached -Texture (Ella-wound Skin Appearance) Assessed -Moisture (Ella-wound Skin Appearance) Assessed -Color (Ella-wound Skin Appearance) Assessed -Temperature (Ella-wound Skin No Abnormality Appearance) (Pt Warm) -Tenderness on Palpation (Ella-wound No Skin Appearance) -Ulcer Cleansing Rinsed/ Irrigated with Saline -Foul Odor after Cleansing No #4 Left Anterior Ankle -Combined with other wound No -Current Size (cm) - Length 0.1 -Current Size (cm) - Width 0.1 -Current Size (cm) - Depth 0.1 -Total Square Cm 0.01 -Epithelialization Large 67-100% -Texture (Ella-wound Skin Appearance) Assessed, Scarring -Moisture (Ella-wound Skin Appearance) Assessed -Color (Ella-wound Skin Appearance) Assessed -Temperature (Ella-wound Skin No Abnormality Appearance) (Pt Warm) -Tenderness on Palpation (Ella-wound No Skin Appearance) -Ulcer Cleansing Rinsed/ Irrigated with Saline -Foul Odor after Cleansing No #3 5th Toe Dorsal -Combined with other wound No -Current Size (cm) - Length 0.1 -Current Size (cm) - Width 0.1 -Current Size (cm) - Depth 0.1 -Total Square Cm 0.01 -Exudate Amt None Present -Granulation Amt None Present (0 %) -Texture (Ella-wound Skin Appearance) Callus -Moisture (Ella-wound Skin Appearance) Assessed -Color (Ella-wound Skin Appearance) Assessed -Temperature (Ella-wound Skin No Abnormality Appearance) (Pt Warm) -Tenderness on Palpation (Ella-wound No Skin Appearance) -Ulcer Cleansing Rinsed/ Irrigated with Saline -Foul Odor after Cleansing No #2 5th toe -Combined with other wound No -Current Size (cm) - Length 0.1 -Current Size (cm) - Width 0.1 -Current Size (cm) - Depth 0.1 -Total Square Cm 0.01 -Date of Last Picture (Recall this 01/07/22 field) -Photo Taken Yes -Texture (Ella-wound Skin Appearance) Callus -Moisture (Ella-wound Skin Appearance) Assessed -Color (Ella-wound Skin Appearance) Assessed -Temperature (Ella-wound Skin No Abnormality Appearance) (Pt Warm) -Tenderness on Palpation (Ella-wound No Skin Appearance) -Ulcer Cleansing Rinsed/ Irrigated with Saline -Foul Odor after Cleansing No #1 Left Heel -Combined with other wound No -Current Size (cm) - Length 0.7 -Current Size (cm) - Width 1 -Current Size (cm) - Depth 0.3 -Total Square Cm 0.7 -Date of Last Picture (Recall this 01/07/22 field) -Photo Taken Yes -Epithelialization None Present -Tunneling No -Undermining/Tunneling No -Circular Undermining No -Exudate Amt Small -Exudate Type Serosanguineous -Wound Margin Distinct, Outline Attached -Granulation Amt None Present (0 %) -Slough/Fibrin Yes -Necrosis Amt Large (67-100%) -Necrotic Tissue Type Adherent Slough -Texture (Ella-wound Skin Appearance) Assessed, Scarring -Moisture (Ella-wound Skin Appearance) Assessed -Color (Ella-wound Skin Appearance) Assessed -Temperature (Ella-wound Skin No Abnormality Appearance) (Pt Warm) -Tenderness on Palpation (Ella-wound Yes Skin Appearance) -Ulcer Cleansing Rinsed/ Irrigated with Saline -Foul Odor after Cleansing No -Anesthetic Used 5% Lidocaine Gel WC - Nurse 2 - General Ulcer CM Notes Start: 01/07/22 08:34 Freq: Status: Active Protocol: Activity Type Activity Date Activity User E-Sign Co-Sign Detail Recorded Client Recorded Date Recorded By Document 01/07/22 08:56 RAGHU [id number] 01/07/22 08:58 RAGHU 01/07/22 08:56 Wound Center Nurse 2 #6 left Med Lower Leg -Correct Patient No -Correct Side, Site, Position No -Correct Procedure No -Procedure Performed No -Wound/Ulcer Outcome Not Healed #5 left [place] -Correct Patient No -Correct Side, Site, Position No -Correct Procedure No -Procedure Performed No -Post Debridement (cm) - Length 0 -Post Debridement (cm) - Width 0 -Post Debridement (cm) - Depth 0 -Total Square (Post) (cm) 0 -Area of Debridement (cm) - Length 0 -Area of Debridement (cm) - Width 0 -Total Square (Area) (cm) 0 -Wound/Ulcer Outcome Healed- Epithelialized #4 Left Anterior Ankle -Correct Patient No -Correct Side, Site, Position No -Correct Procedure No -Procedure Performed No -Post Debridement (cm) - Length 0 -Post Debridement (cm) - Width 0 -Post Debridement (cm) - Depth 0 -Total Square (Post) (cm) 0 -Area of Debridement (cm) - Length 0 -Area of Debridement (cm) - Width 0 -Total Square (Area) (cm) 0 -Wound/Ulcer Outcome Healed- Epithelialized #3 5th Toe Dorsal -Correct Patient No -Correct Side, Site, Position No -Correct Procedure No -Procedure Performed No -Wound/Ulcer Outcome Not Healed #2 5th toe -Correct Patient No -Correct Side, Site, Position No -Correct Procedure No -Procedure Performed No -Wound/Ulcer Outcome Not Healed #1 Left Heel -Correct Patient No -Correct Side, Site, Position No -Correct Procedure No -Procedure Performed No -Wound/Ulcer Outcome Not Healed Pain Scale: 0-10 Numeric Is Patient Pain Free? Yes Assessment/Plan Assessment/Plan (1) Non-pressure chronic ulcer of other part of left foot with fat layer exposed: CODE(S): L97.522 - Non-pressure chronic ulcer of other part of left foot with fat layer exposed (2) Dry gangrene: CODE(S): I96 - Gangrene, not elsewhere classified (3) Peripheral vascular disease, unspecified: CODE(S): I73.9 - Peripheral vascular disease, unspecified PLAN: Patient examined and evaluated, all findings discussed with patient in detail. Previous radiographs reviewed no evidence of acute bony infection. Patient still not undergone vascular intervention on left lower extremity he is awaiting cardiac stress testing this week and he will undergo left lower extremity revascularization pending stress test findings. The wounds at this appears stable and noninfected. I have recommended protective weightbearing in a surgical shoe assisted by a walker, patient defers walker and is requesting a cane. Patient presented in normal shoe gear today without a cane. I have recommended continued smoking cessation. We will await vascular recommendation and avoid any debridement until a decision has been made. It is possible that based on the patient's vascular disease he may require a more proximal amputation. Until that time we will keep the wound stable using Betadine paint and DSD with daily cleansing. Patient will follow up in 3 weeks to ensure that no acute infection develops. Patient will call our office or present to the ED if he notes any signs or symptoms of infection. Until that time we will delay any aggressive wound care management until there has been recommendations or revascularization attempt by vascular surgery.
== END 2022-01-21 23:59 | disposition home or self-care (01) ==
LOC: WC 08:37
PROVIDERS: PCP Clinical Nurse Specialist; Visit Provider Podiatrist
DX: L97.422 Non-pressure chronic ulcer of left heel and midfoot with fat layer exposed (principal); I96 Gangrene, not elsewhere classified; I73.9 Peripheral vascular disease, unspecified; F17.210 Nicotine dependence, cigarettes, uncomplicated; Z79.82 Long term (current) use of aspirin; Z79.84 Long term (current) use of oral hypoglycemic drugs; Z79.899 Other long term (current) drug therapy
CPT/HCPCS: 99213; G0463

== ENCOUNTER 2022-01-28 08:15 | Outpatient (RCR) | payer MEDICARE, SELFPAY ==
[2022-01-22 01:05] VITALS: BP 116/72; PULSE 85; RESP 16; TEMP 35.8
[2022-01-28 08:09] VITALS: BP 99/65; PULSE 84; TEMP 36.2
--- NOTE | 2022-01-28 08:44 | PN.PCM_ITS ---
History of Present Illness Date of Service: 01/28/22 Progress of Wound: This 71-year-old male is being seen for chronic lower extremity ulcerations on the left side secondary to severe peripheral arterial disease that is chronic in nature. Patient was evaluated by vascular surgeon in [place] who noted that he had 20% blood flow on the left lower extremity. Patient is awaiting cardiac stress test (This is now scheduled for ) prior to left lower extremity extremity vascular intervention. Patient seen by Dr. Castillo photogrammetric surveyor on 01/08/2022, awaiting stress test results prior to definitive revascularization of left lower extremity. Patient continues to have some rest pain and fatiguing with ambulation. Patient notes improvement to his left leg wounds and left fifth digital wound as well as the wound to his left heel. Patient notes he has decreased his smoking down to 6 cigarettes a day. Notes that this is primarily due to an inability to smoke cigarettes secondary to coughing. Patient notes he is checking his wounds daily cleansing him and redressing with Betadine paint DSD. Patient noncompliant with offloading wound. Objective Data Objective Data Vital Signs: Vital Signs Temp Pulse Resp BP 97.2 F L 84 16 99/65 01/28/22 08:09 01/28/22 08:09 01/22/22 01:05 01/28/22 08:09 Physical Exam Narrative Patient alert oriented person place time. Patient ambulates unassisted and normal shoe gear without antalgia. Vascular: There atrophic skin changes to bilateral feet with skin thinning shiny appearance dry skin. Diminished digital hair growth noted bilaterally. Ischemic changes noted to the left fifth digit left plantar heel and multiple focal ulcerations to left leg. Nonpalpable, pulses monophasic to posterior tibial and dorsalis pedis as well as perforating peroneal of the left lower extremity. Neurologic: Light touch protective sensation intact to bilateral feet. Dermatologic: Full-thickness ulceration to plantar left heel with periwound hyperkeratosis fibrogranular base mild 0.5 cm undermining. No acute signs of infection. Wound well demarcated likely vascular in nature. Pre and postdebridement measurements document nursing notes. Distal left fifth digit wound is completely healed at this time. Multiple ulcerations to left lower extremity medial tibia healed x3. New abrasion to right lower extremity at the level of mid tibia, superficial in nature, no signs of infection, stable hemorrhagic crust overlying wound bed. Musculoskeletal: Good strength fold of bilateral lower extremity compartments. No gross deformity contributing to wound formation. No pain with calf squeeze of bilateral lower extremity. Debridement Note Debridement Note Post-Debridement Measurements and Additional Note: Post-Debridement Measurements/Treatment - Nurse 1 - General Ulcer Assessment Start: 01/28/22 08:09 Freq: Status: Active Protocol: RADHA.LOWEXT Activity Type Activity Date Activity User E-Sign Co-Sign Detail Recorded Client Recorded Date Recorded By Document 01/28/22 08:09 JULIAN [id number] 01/28/22 08:21 JULIAN 01/28/22 08:09 WC - Today's Visit Information Type of service Follow-up Visit (Physician/FIRER WATERTENDER ) Arrival Mode Ambulatory Patient Identification Verified (Name & Yes ) Patient Requires Transmission-Based No Precautions Safety Precautions NA Vital Signs Temperature (97.8 F-99.1 F) 97.2 F L Temperature Source Temporal Pulse Rate (60-100) 84 Pulse Location Monitor Blood Pressure (90/60-120/80) 99/65 Blood Pressure Mean (mm Hg) 76 Source Monitor History Since Last Visit- (Skip if this is Patient's initial visit) Have you changed medications since your Yes last visit? Any new allergies or adverse reactions No Had a fall/change in ADL's that may No increase risk of falls Signs or symptoms of abuse and/or No neglect since last visit Have you been in the hospital since your No last visit? Has dressing in place as prescribed Yes Has compression in place as prescribed N/A Has offloadiing in place as prescribed N/A Experienced any changes in pain level or No management Left Footwear Regular Shoe Right Footwear Regular Shoe Pain Scale: 0-10 Numeric Is Patient Pain Free? Yes - Nurse 1 - General Ulcer Measurement Start: 01/28/22 08:09 Freq: Status: Active Protocol: Activity Type Activity Date Activity User E-Sign Co-Sign Detail Recorded Client Recorded Date Recorded By Document 01/28/22 08:09 JULIAN [id number] 01/28/22 08:21 JULIAN 01/28/22 08:09 Wound Center Nurse 1 #6 left Med Lower Leg -Combined with other wound No #3 5th Toe Dorsal -Current Size (cm) - Length 0.1 -Current Size (cm) - Width 0.1 -Current Size (cm) - Depth 0.1 -Total Square Cm 0.01 -Photo Taken No -Epithelialization None Present -Tunneling No -Undermining/Tunneling No -Circular Undermining No -Change in Wound Grade/Stage No -Exudate Amt None Present -Wound Margin Distinct, Outline Attached -Granulation Amt None Present (0 %) -Granulation Quality N/A -Slough/Fibrin No -Necrosis Amt None Present (0 %) -Structure Exposed N/A -Texture (Ella-wound Skin Appearance) Assessed,Callus -Moisture (Ella-wound Skin Appearance) No Abnormality, Assessed -Color (Ella-wound Skin Appearance) No Abnormality, Assessed -Temperature (Ella-wound Skin No Abnormality Appearance) (Pt Warm) -Tenderness on Palpation (Ella-wound No Skin Appearance) -Ulcer Cleansing Rinsed/ Irrigated with Saline -Foul Odor after Cleansing No -Anesthetic Used 4% Lidocaine Solution #1 Left Heel -Combined with other wound No -Current Size (cm) - Length 0.4 -Current Size (cm) - Width 1 -Current Size (cm) - Depth 0.5 -Total Square Cm 0.4 -Date of Last Picture (Recall this 01/28/22 field) -Photo Taken Yes -Epithelialization None Present -Tunneling No -Undermining/Tunneling No -Circular Undermining No -Change in Wound Grade/Stage No -Exudate Amt Large -Exudate Type Serosanguineous -Wound Margin Distinct, Outline Attached -Granulation Amt Medium (34-66%) -Granulation Quality N/A -Necrosis Amt Large (67-100%) -Necrotic Tissue Type Adherent Slough -Structure Exposed N/A -Texture (Ella-wound Skin Appearance) No Abnormality, Assessed -Moisture (Ella-wound Skin Appearance) No Abnormality, Assessed -Color (Ella-wound Skin Appearance) No Abnormality, Assessed -Temperature (Ella-wound Skin No Abnormality Appearance) (Pt Warm) -Tenderness on Palpation (Ella-wound No Skin Appearance) -Ulcer Cleansing Rinsed/ Irrigated with Saline -Foul Odor after Cleansing No -Anesthetic Used 4% Lidocaine Solution Lower Limb Edema Present No WC - Nurse 2 - General Ulcer CM Notes Start: 01/28/22 08:09 Freq: Status: Active Protocol: Activity Type Activity Date Activity User E-Sign Co-Sign Detail Recorded Client Recorded Date Recorded By Document 01/28/22 08:26 [id number] 01/28/22 08:29 01/28/22 08:26 Wound Center Nurse 2 #6 left Med Lower Leg -Correct Patient No -Correct Side, Site, Position No -Correct Procedure No -Procedure Performed No -Post Debridement (cm) - Length 0 -Post Debridement (cm) - Width 0 -Post Debridement (cm) - Depth 0 -Total Square (Post) (cm) 0 -Area of Debridement (cm) - Length 0 -Area of Debridement (cm) - Width 0 -Total Square (Area) (cm) 0 -Wound/Ulcer Outcome Healed- Epithelialized #3 5th Toe Dorsal -Correct Patient No -Correct Side, Site, Position No -Correct Procedure No -Procedure Performed No -Post Debridement (cm) - Length 0 -Post Debridement (cm) - Width 0 -Post Debridement (cm) - Depth 0 -Total Square (Post) (cm) 0 -Area of Debridement (cm) - Length 0 -Area of Debridement (cm) - Width 0 -Total Square (Area) (cm) 0 -Wound/Ulcer Outcome Healed- Epithelialized #2 5th toe -Correct Patient No -Correct Side, Site, Position No -Correct Procedure No -Procedure Performed No -Wound/Ulcer Outcome Healed- Epithelialized #1 Left Heel -Time 08:27 -Correct Patient Yes -Correct Side, Site, Position Yes -Correct Procedure Yes -Procedure Performed Yes -Type of Procedure Debridement -Clinical Debridement Subcutaneous -Tissue Removed Subcutaneous -Post Debridement (cm) - Length 0.5 -Post Debridement (cm) - Width 0.5 -Post Debridement (cm) - Depth 1.2 -Total Square (Post) (cm) 0.25 -Area of Debridement (cm) - Length 0.5 -Area of Debridement (cm) - Width 0.5 -Total Square (Area) (cm) 0.25 -Tunneling No -Undermining/Tunneling No -Circular Undermining No -Wound/Ulcer Outcome Not Healed -Ulcer Cleansing Rinsed/ Irrigated with Saline -Foul Odor after Cleansing No -Bioengineered Tissue No -Bleeding Controlled with Pressure -Treatment Response Procedure Tolerated Well -Offloading No -Debridement - Subq, 1st 20sq cm Yes Pain Scale: 0-10 Numeric Is Patient Pain Free? Yes Assessment/Plan Assessment/Plan (1) Peripheral vascular disease of extremity with claudication: CODE(S): I73.9 - Peripheral vascular disease, unspecified (2) Non-pressure chronic ulcer of other part of left foot with fat layer exposed: CODE(S): L97.522 - Non-pressure chronic ulcer of other part of left foot with fat layer exposed PLAN: Patient examined evaluated, all findings cussed with patient in detail. Upon repeat evaluation of patient is vascular status. Left lower extremity pulses continue to be monophasic on Doppler examination and flow was occluded with light compression of the vessels. Patient is awaiting cardiology clearance for left lower extremity revascularization attempt. Patient has a stress test scheduled for next week. Patient's wounds likely will heal until vascular intervention is performed. This was discussed with patient in great detail. Today for the left heel wound was excisionally debrided down to including level of subcutaneous tissue of all nonviable tissue using a 5 mm dermal curette, this was performed atraumatically and to a minimal nature due to level of vascular disease. The goal of the debridement was to eliminate any bioburden from the area. Care was taken to avoid any excess tissue trauma. Wound was then flushed with copious amounts of normal sterile saline. Hemosiderin stasis obtained with light compression. Anesthesia was topical. Patient has tolerated procedure well. Wound dressed with Betadine DSD. He will continue daily foot cleanses with antibacterial soap and drying the area and applying Betadine with DSD. It was discussed in great deal with the patient that he should discontinue his smoking habit with a goal of smoking less than 3 cigarettes on his next visit. It was discussed with a great deal with the patient that upon revascularization we will make the patient completely nonweightbearing in order to expedite healing of his wound. Patient understands this and agrees despite being noncompliant with offloading at this time. Patient will follow up in 3 weeks. (3) Dry gangrene: CODE(S): I96 - Gangrene, not elsewhere classified
== END 2022-02-20 23:59 | disposition home or self-care (01) ==
LOC: WC 08:15
PROVIDERS: PCP Clinical Nurse Specialist; Visit Provider Podiatrist
DX: I73.9 Peripheral vascular disease, unspecified (principal); L97.422 Non-pressure chronic ulcer of left heel and midfoot with fat layer exposed; Z79.82 Long term (current) use of aspirin; F17.210 Nicotine dependence, cigarettes, uncomplicated; Z79.899 Other long term (current) drug therapy
CPT/HCPCS: 11042

== ENCOUNTER → 2022-02-13 | Outpatient (CLI) | payer MEDICARE, SELFPAY ==
--- NOTE | 2022-02-13 06:26 | ECHOD_ITS ---
Reason For Study: PRE OP Procedure This was a 2D Doppler, Color Flow transthoracic echocardiogram. Exam performed in department. Left Ventricle Normal LV size. Left ventricular systolic function is normal. The estimated ejection fraction is 55 %. Stage 1 diastolic dysfunction. No regional wall motion abnormalities noted. Right Ventricle Normal RV size. Normal systolic function. Atria Normal left atrium. Normal right atrium. Mitral Valve Normal mitral valve. Tricuspid Valve Normal tricuspid valve. Aortic Valve Normal aortic valve. Pulmonic Valve Normal pulmonic valve. Great Vessels Normal aortic root. The pulmonary artery is normal size. Normal inferior vena cava. Pericardium/Pleural No pericardial effusion. MMode/2D Measurements & Calculations LVIDd: 5.3 cm IVSd: 1.1 cm Ao root diam: 3.3 cm LVIDs: 3.4 cm LVPWd: 1.1 cm RVDd: 3.0 cm FS: 35.8 % LAV(MOD-bp): 47.2 ml LVAd ap4: 31.9 cm2 SV(MOD-sp4): 56.8 ml LAV(MOD-bp) Indexed: 24.8 ml/m2 LVLd ap4: 9.2 cm LAV(MOD-sp2): 63.7 ml EDV(MOD-sp4): 97.1 ml LAV(MOD-sp4): 32.4 ml EDV(sp4-el): 93.6 ml LVAs ap4: 17.9 cm2 LVLs ap4: 7.3 cm ESV(MOD-sp4): 40.2 ml ESV(sp4-el): 37.4 ml EF(MOD-sp4): 58.5 % EF(sp4-el): 60.1 % SV(sp4-el): 56.2 ml LA A4 area: 14.3 cm2 LA dimension(2D): 3.5 cm RA A4 area: 16.0 cm2 Doppler Measurements & Calculations MV E max pasquale: 62.6 cm/sec Lat Peak E' Pasquale: 9.4 cm/sec Med Peak E' Pasquale: 6.6 cm/sec MV A max pasquale: 84.1 cm/sec E/E' lat: 6.6 E/E' med: 9.5 MV E/A: 0.74 Ao V2 max: 118.8 cm/sec LV V1 max: 77.9 cm/sec PA V2 max: 57.3 cm/sec Ao max P.6 mmHg LV V1 max P.4 mmHg ECHO/Echo Complete Interpretation Summary Normal LV size. Left ventricular systolic function is normal. The estimated ejection fraction is 55 %. Stage 1 diastolic dysfunction. Ordering Physician: Esteban Castillo Referring Physician: Jonathan, Effie Performed By: Teresita Vidal RCS
--- NOTE | 2022-02-13 18:40 | STRESSREP ---
Stress Test Report Pharmacologic mild area perfusion stress test. Preoperative clearance for 71-year-old man with a history of peripheral vascular disease and coronary artery disease. Known occlusion of the right coronary artery and residual disease in the left anterior descending artery and circumflex artery. Stress protocol: Resting KG demonstrates normal sinus rhythm with a rate of 68 bpm normal intervals are noted resting blood pressure is 118/80 mmHg. 0.4 mg of regadenoson was infused per usual protocol followed by Intravenous saline flush injection continuous EKG monitoring was performed. The maximum heart rate attained was 88 bpm which was 58% of max impacted heart rate the maximum workload was 1 metabolic equivalent. At rest there were no ST or T wave changes noted to suggest abnormal flow reserve and at peak infusion nonspecific ST changes were noted with did not meet the criteria for ischemia. No clinical angina was noted. Myocardial perfusion protocol. 11.9 mCi of technetium 99m sestamibi was injected at rest. 0.4 mg of regadenoson was infused per usual protocol. At peak infusion 34.1 mCi of technetium 99m sestamibi was injected stress images were obtained stress and rest images were reconstructed and compared in the short axis vertical long and horizontal long axis. Gated images were also obtained to Perfusion SPECT analysis: Review of the images demonstrate a normal cardiac silhouette size. There is reduction of perfusion noted involving the anterior septal wall, inferior septal wall, the basal inferior wall and the inferior lateral wall. The resting images demonstrate improvement in the anterior septal and inferior lateral and inferior septal osuna. The basal inferior wall appears to have a fixed perfusion defect suggestive of an infarct in this territory. Gated SPECT analysis: The gated ejection fraction is 48%. Conclusion: Ischemic cardiomyopathy. Abnormal pharmacologic stress test with anteroseptal, inferoseptal inferolateral ischemia. Basal inferior infarct noted.
== END | disposition home or self-care (01) ==
PROVIDERS: PCP Clinical Nurse Specialist; Referring Provider Internal Medicine Cardiovascular Disease; Visit Provider Internal Medicine Cardiovascular Disease
DX: Z01.810 Encounter for preprocedural cardiovascular examination (principal); I73.9 Peripheral vascular disease, unspecified; I25.10 Atherosclerotic heart disease of native coronary artery without angina pectoris; I10 Essential (primary) hypertension; E78.5 Hyperlipidemia, unspecified; Z95.5 Presence of coronary angioplasty implant and graft; Z72.0 Tobacco use
CPT/HCPCS: 78452; 93017; 93306; A9500; A4216; J2785

== ENCOUNTER 2022-03-05 06:33 | Day surgery (SDC) | payer MEDICARE, SELFPAY ==
--- NOTE | 2022-02-18 08:30 | RAD_ITS ---
STUDY: X-RAY CHEST REASON FOR EXAM: Male, 71 years old. PREOP TECHNIQUE: PA and lateral views of the chest. COMPARISON: None. FINDINGS: The lungs are clear and expanded. There is no demonstrated pleural abnormality. Normal size heart. Normal mediastinum and keila. Normal visualized pulmonary arteries. Normal visualized aortic arch and descending thoracic aorta. Normal visualized thoracic spine. Normal visualized ribs, clavicles, and shoulders. There is no demonstrated abnormality of the visualized soft tissue structures of the upper abdomen. RAD/Chest PA and Lateral IMPRESSION: Normal x-ray examination of the chest. Electronically Signed: Ferdinand Francois MD at 16:54 EDT ,
[2022-02-18 09:44] LABS: Absolute Lymphocyte Count 2.36 X10^3/uL (0.83-4.51); Absolute Neutrophil Count 5.4 X10^3/uL (2.0-7.7); Basophil# 0.09 X10^3/uL; Eosinophil# 0.28 X10^3/uL; Eosinophils% 3.2 % (0-5); Hemoglobin 14.7 g/dL (13.0-16.5); Lymphocyte # 2.36 X10^3/ul (0.83-4.51); Lymphocyte % 26.8 % (19-41); Mean Corpuscular Hgb 27.3 pg (27.0-32.0); Mean Corpuscular Volume 85.5 fL (80-94); Mean Platelet Vol. 11.4 fl (6.2-12.0); Monocyte# 0.61 X10^3/uL; Monocyte% 6.9 % (0-10); NRBC Flagged by Analyzer 0 % (0-5); Neutrophil # 5.44 X10^3/uL (2.7-7.7); Neutrophil % 61.8 % (47-70); Platelet Count 232 K/mm3 (150-450); RBC Distribution Width CV 14.1 % (11.6-14.6); RBC Distribution Width SD 44.5 fl (35.1-43.9); Red Blood Count 5.38 M/mm3 (4.6-6.2); White Blood Count 8.8 K/mm3 (4.4-11.0)
[2022-02-18 10:09] LABS: Anion Gap 7 (5-15); BUN 9 mg/dL (7-18); BUN/Creat Ratio 9.8 RATIO (10-20); Calcium,Total 9.1 mg/dL (8.5-10.1); Chloride 102 mmol/L (98-107); Creatinine, Serum 0.92 mg/dL (0.70-1.30); EST Glomerular Filtration Rate 86 mL/min (>60); Est Glom Filt Rate - Afr Amer 105 mL/min (>60); Glucose 147 mg/dL (74-106); Potassium 4.2 mmol/L (3.5-5.1); Sodium Level 136 mmol/L (136-145)
[2022-02-18 10:15] LABS: International Normalized Ratio 1.1; Prothrombin Time (Protime)PT. 13.5 SECONDS (11.7-14.9)
[2022-02-18 10:16] LABS: Partial Thromboplast Time 37.6 Seconds (24.1-36.2)
[2022-03-04 08:21] VITALS: BMI 25.8
--- NOTE | 2022-03-05 06:00 | HP_ITS ---
[facility] History of Present Illness Details: He 11-year-old man with a history of coronary artery disease status post remote angioplasty and stenting of an occluded right coronary artery in 2009. 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 He also has a history of hypertension remotely hyperlipidemia, tobacco use as well as peripheral vascular disease. This visit is for preop evaluation for bilateral femoral endarterectomy and I iliac stenting. He had a CTA of the abdomen with runoff without contrast which demonstrated evidence of diffuse atherosclerotic changes in the infrarenal abdominal aorta greater than 50% in the right common iliac with focal area measuring greater than 50%. There is greater than 50% stenosis noted right in the proximal external iliac artery and high-grade stenosis of the right common femoral artery with complete occlusion of the right superficial femoral artery. There was also complete occlusion of the distal external iliac artery and left common femoral artery. The anterior tibial artery was also totally occluded. 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 He has had no chest pain or shortness of breath or paroxysmal nocturnal dyspnea or pedal edema he has been compliant with his minimal medications. His physical exam demonstrates clear lung frank regular rate and rhythm and no pedal edema reduced flow is noted bilaterally his electrocardiogram demonstrates normal sinus rhythm with an inferior infarct and a rate of 74 bpm. Intake Vital Signs 01/08/22 16:43 Height 5 ft 8 in Weight: 170 lb BMI 25.8 BP 112/76 Respiration 16 Pulse 82 Pulse Oximetry (%) 98 Intake Visit Reasons: SX CLEARANCE FOR DR CASTRO Allergies No Known Allergies Allergy (Verified 11/11/21 19:18) Medications aspirin 325 mg PO DAILY 12/05/21 [History Confirmed 01/08/22] atorvastatin 80 mg PO DAILY 12/17/21 [History Confirmed 01/08/22] metformin 500 mg tablet,extended release 24 hr 500 mg PO DAILY tab 01/08/22 [History Confirmed 01/08/22] [facility] Medical History (Updated 01/08/22 @ 16:43 by Tiffanie Womack) Atherosclerotic heart disease of [place] coronary artery without angina pectoris Essential hypertension Hyperlipidemia Peripheral vascular disease of extremity with claudication Tobacco abuse Surgical History (Updated 01/08/22 @ 12:37 by Tiffanie Womack) History of coronary artery stent placement (02/05/10) Social History (Updated 01/08/22 @ 16:55 by Tiffanie Womack) Smoking Status: Current every day smoker tobacco type: cigarettes Tobacco: How many years used: 35 ROS Const Const: Negative for fatigue, weakness, headache(s), frequent falls, difficulty sleeping or excessive sweating Eyes Eyes: Negative for loss of peripheral vision, transient loss of vision, blurry vision, double vision or tunnel vision ENT ENT: Negative for headache(s), dizziness, Nosebleed/epistaxis or balance problems Cardio Chest Pain: No Palpitations: No Edema: None Muscle aches with walking: Bilateral (left>right) Resp Respiratory: Negative for SOB with activity, SOB at rest, SOB orthopnea\SOB lying down, Cough or paroxysmal nocturnal dyspnea GI GI: Negative nausea, vomiting, heartburn or black,tarry stools : Negative for hematuria Musc Musc: Negative for muscle aches/ myalgia, muscle weakness, joint pain or balance problems Skin Skin: Negative non-healing lesions, rash or unusual bruising Neuro Neuro: Negative for dizziness, lightheadedness, near syncope, syncope, orthostatic symptoms, frequent falls, headache(s), weakness, blurry vision, double vision or lack of coordination Navneet Hematologic/Lymphatic: Negative for easy bleeding or easy bruising Endo Endo: Negative for fatigue, excessive sweating or increased thirst/drinking Psych Psych: Negative for anxiety or depression Allergy Allergy/Immunology: Negative for hives and Negative for rash Cardiology Exam Const Appearance: cooperative, healthy appearing, no acute distress, well developed and well groomed Nutritional Appearance: average body habitus and well nourished Orientation: alert, awake and oriented x3 Head Head: normal to inspection, normocephalic and atraumatic Ears: hearing grossly normal bilaterally and external ears normal Nose: external nose normal, nares normal, nasal mucous membranes and turbinates normal, septum normal and no nasal discharge Face and Sinus: face symmetric Mouth: oral mucosae normal, tongue normal, oropharynx normal and moist mucous membranes Teeth and gingiva: dentition normal Throat: posterior oropharynx normal, tonsils normal and uvula midline Eyes General: appearance normal, both eyes and all related structures Eyelids: eyelids normal Conjunctivae: conjunctivae normal Pupils: PERRL, normal by confrontation and accommodation normal EOM: EOM intact bilaterally Neck Neck: normal visual inspection, trachea midline and no JVD JVD: +5 Carotids: normal carotid upstroke and bounding pulses Chest Chest inspection: normal inspection of the chest, symmetric chest movement and normal respiratory effort Auscultation: Bilateral: Clear to Auscultation Cardio Palpation: normal PMI Rate: regular rate Rhythm: regular rhythm Heart sounds: S1 normal, S2 normal and normal, physiologic split S2; Negative rub, gallop or murmur GI GI: normal to inspection, soft, no hepatosplenomegaly and bowel sounds present Neuro General: patient alert, patient awake, patient oriented x3, gait normal, moves all extremities and no focal sensory deficit Skin Skin: no rashes or lesions noted Extremities Pulses: Normal: Right Femoral Pulse and Left Femoral Pulse Lower Extremity Edema: None: Bilateral Musculoskel Musculoskeletal: No joint tenderness Psych Psychological: normal affect Supplemental Info Supplemental Information Labs: No Data to Display Diagnostics: Electrocardiogram Pulmonary: No Data to Display Assessment and Plan Assessment and Plan (1) Encounter for pre-operative cardiovascular clearance: Status: Acute Orders: Orders: 12 Lead EKG performed by [facility] Today Plan - Dr. Esteban Castillo MD: In terms of preoperative cardiac evaluation I would recommend that we obtain an echocardiogram to assess his ventricular function as well as a myocardial perfusion stress test. Depending on the findings further recommendations will be made. (2) History of coronary artery stent placement: Status: Acute Comment: PCI-MULUGETA-w/ 2.5 x 28 mm, 2.7 x 28 mm Promus Stents and 3.0 x 32 mm, 3.0 x 24 mm Taxus Stents 09/28/2009 Orders: Orders: 12 Lead EKG performed by [facility] Nuclear Stress Test - [facility] Today Plan - Dr. Esteban Castillo MD: He has had previous coronary artery stenting and likely occlusion of his right coronary artery. This will be reassessed with the echocardiogram. Depending on the findings further recommendations will be made. (3) Essential hypertension: Status: Acute Orders: Orders: 12 Lead EKG performed by [facility] R[facility] - Dr. Esteban Castillo MD: His blood pressure actually appears to be under good control at this time and I would not recommend that we make any other changes. (4) Peripheral vascular disease of extremity with claudication: Status: Chronic Plan - Dr. Esteban Castillo MD: He does have peripheral vascular disease and is scheduled for revascularization he needs to be on aspirin and high intensity statin. He would likely need (5) Hyperlipidemia: Status: Acute Plan - Dr. Esteban Castillo MD: He is on high intensity statin which will be continued. I would not recommend any other changes. 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
--- NOTE | 2022-03-05 10:28 | CL.D_ITS ---
Patient Name: VILMA NUNEZ Study Date: 03/05/2022 Performing: Esteban Castillo MD Ht: 68 inches 173 cm : 1950 Wt: 170 lbs 77 kg Age: 71 Gender: male BSA: 1.91 PROCEDURE(S) PERFORMED [id number])[facility] PROFILE AND INDICATIONS Indications: Suspected CAD Heart Failure: None Stress/Imaging Date: 02/13/22Stress Test with SPECT MPI: Positive Intermediate Risk CAD Presentations: No Sxs, no angina. CONCLUSIONS Mild left main coronary disease, left anterior descending artery which is patent previously stented, obtuse marginal branch which is patent and a totally occluded right coronary artery and distal circum flex artery with preserved ejection fraction. RECOMMENDATIONS The above appears to correlate with the stress testing and without any ischemia or revascularizable z ones the patient is stable to undergo his vascular surgery. DESCRIPTION OF PROCEDURE The patient arrived to the procedure lab. The risks and benefits of the procedure as well as a full d escription of our services here and current unavailability of surgical backup were fully explained to the patient and/or their significant other prior to the catheterization. The Timeout was completed, verifying the correct patient and procedure. The patient's procedural site was prepped and draped in the usual fashion. Local anesthetic was given subcutaneously to right radial region with Lidocaine 2% . Using a modified Seldinger technique, arterial access was obtained via the right radial artery, a 6 Fr sheath was inserted. Left Coronary Artery selective angiography was performed in multiple views u sing a 5 Fr. 4.0 Cory catheter. Right Coronary Artery selective angiography was then performed in mu ltiple views using a 5 Fr. 4.0 Cory catheter.The arterial sheath was pulled and a TR Band was applie d for hemostasis with 10cc of air placed in band. CORONARY ANGIOGRAPHY DOMINANCE: Right Dominant LEFT HEART ASSESSMENT Left Ventricular Ejection Fraction: by Echo 55 % Normal Left Ventricular systolic function LEFT MAIN: Mild calcification, Short and 30%stenosis ostial LEFT ANTERIOR DESCENDING ARTERY: Previously stented vessel is patent with a diagonal vessel with an o stial 70% stenosis and a first septal financial brokers with a 60% stenosis. Rest of the vessel appears to be mildly diseased. CIRCUMFLEX ARTERY: Nondominant but large vessel with first obtuse marginal branch patent. [place] circumflex artery was previously stented and is totally occluded with mild left to left collaterals and also collaterals to the distal right coronary artery. RIGHT CORONARY ARTERY: Previously stented vessel is occluded OSTIAL RCA: is occluded COLLATERAL FLOW: Collateral flow from Left to Right COMPLICATIONS No Complications PROCEDURE MEDICATIONS Versed 0.5 mg IV Fentanyl 25 mcg IV Oxygen: 2 L/min via nasal cannula Heparin given IA 03/05/2022 08:07:28 Verapamil 2.5mg, Ntg 100mcgs, 3000 units of Heparin given IA 03/05/2022 08:07:28 SUMMARY OF HEMODYNAMIC DATA Time AIR REST ECG 07:19:25 Art 125/66 (87) 08:09:56 AO 125/69 (90) SA 08:12:10 RM AIR REST 10:27:58 Signed By Esteban Castillo MD On 03/05/2022 10:38:33 Esteban Castillo MD
== END 2022-03-05 10:35 | disposition home or self-care (01) ==
PROVIDERS: PCP Clinical Nurse Specialist; Referring Provider Internal Medicine Cardiovascular Disease; Visit Provider Internal Medicine Cardiovascular Disease
DX: T82.855A Stenosis of coronary artery stent, initial encounter (principal); I70.211 Atherosclerosis of native arteries of extremities with intermittent claudication, right leg; I70.0 Atherosclerosis of aorta; I70.92 Chronic total occlusion of artery of the extremities; Y83.8 Other surgical procedures as the cause of abnormal reaction of the patient, or of later complication, without mention of misadventure at the time of the procedure; I25.10 Atherosclerotic heart disease of native coronary artery without angina pectoris; I10 Essential (primary) hypertension; E78.5 Hyperlipidemia, unspecified; F17.210 Nicotine dependence, cigarettes, uncomplicated; Z79.82 Long term (current) use of aspirin; Z79.899 Other long term (current) drug therapy; Z95.5 Presence of coronary angioplasty implant and graft
CPT/HCPCS: 36415; 71046; 80048; 85025; 85610; 85730; 93454; 99152; C1769; C1894; Q9967

== ENCOUNTER → 2024-06-14 | Outpatient (CLI) | payer MEDICARE, SELFPAY | END | disposition home or self-care (01) | PROVIDERS: PCP Clinical Nurse Specialist; Referring Provider Podiatrist Foot & Ankle Surgery; Visit Provider Podiatrist Foot & Ankle Surgery | DX: L02.611 Cutaneous abscess of right foot (principal) | CPT/HCPCS: 87070; 87075; 87077; 87101; 87186; 87205 ==

== ENCOUNTER 2025-04-14 16:00 | Inpatient (IN) | payer MEDICARE, SELFPAY ==
[2025-04-14 16:42] VITALS: BP 97/71; PULSE 116; RESP 18; TEMP 36.2; O2SAT 96; BMI 25.8
--- NOTE | 2025-04-14 18:46 | HP.PCM_ITS ---
HPI - General General Date of Admission: 04/14/25 Date of Service: 04/17/25 Chief Complaint: Here for rehabilitation, intravenous antibiotics. HPI Narrative VILMA NUNEZ, is a 74 Male who presents with followin03/30/2025 Admit [facility]. Right great toe gangrene. MRI showed right foot osteomyelitis. Zosyn, Vancomycin, Heparin for right foot osteomyelitis. Aspirin, statin, hold Plavix for PAOD. Lantus, sliding scale insulin, A1c 8.2 for Diabetes Mellitus II. 03/31/2025 Podiatry performed partial 1st ray amputation. Wound culture grew Prevotella. Moderate to severe right lower extremity PAOD. 04/06/2025 Vascular surgery performed aortobifemoral bypass, Right femoral to below knee popliteal bypass graft with ipsilateral reversed greater saphenous vein. 04/07/2025 Extubated, tachycardia resolved with iv metoprolo. 04/10/2025 NG tube discontinued, IV fluids discontinued. 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 04/12/2025 WBC improving. Hemoglobin 8, monitor. Lantus 8 units, sliding scale insulin, blood sugar goal 140 to 180 for Diabetes Mellitus II. PT/OT SNF. 04/13/2025 Echo negative for vegetation. status post Zosyn, Cefazolin, Vancomycin for right foot osteomyelitis. ID recommended Zosyn IV x 3 weeks for Prevotella right foot osteomyelitis. 04/14/2025 Admit to TCU with debility, here for rehabilitation, strengthening, intravenous antibiotics, prior to discharge home alone. [facility] Medical History Essential hypertension Hyperlipidemia Tobacco abuse Atherosclerotic heart disease of [place] coronary artery without angina pectoris Peripheral vascular disease of extremity with claudication Home Medications ?Medication ?Instructions ?Recorded ?Last Taken ?Type atorvastatin 80 mg tablet 80 mg PO DAILY [facility] 12/17/21 03/05/22 History metformin 500 mg tablet,extended 1,000 mg PO DAILY rayna betes 01/08/22 03/04/22 History release 24 hr clopidogrel 75 mg tablet (Plavix) 75 mg PO DAILY 07/08 Unknown History aspirin 81 mg capsule 81 mg PO DAILY [facility] 04/14/25 Unknown History metoprolol succinate 25 mg 12.5 mg PO DAILY [facility] 08/22/25 Unknown History tablet,extended release 24 hr (Toprol XL) oxycodone 5 mg capsule 5 mg PO Q8H PRN pain 5 Unknown History pantoprazole 40 mg tablet,delayed 40 mg PO DAILY [facility] 04/14/25 Unknown History release piperacillin-tazobactam 4.5 gram 4.5 g IV Q8H infectio n 04/14/25 Unknown History intravenous solution Allergy/AdvReac Type Severity Reaction Status Date / Time No Known Allergies Allergy Verified 07/08/22 14:14 Surgical History History of left heart catheterization (03/05/22) History of coronary artery stent placement (10/17/09) Social History (Updated 04/14/25 @ 18:[address] Buzz Clayton MD) household members: none Smoking Status: Current every day smoker tobacco type: cigarettes Tobacco: How many years used: 35 alcohol intake: never substance use type: does not use ROS Constitutional Constitutional: Reports weakness; Denies chills, fever(s) or weight gain ENT HEENT: Denies headache(s), nasal congestion or nasal discharge Cardiovascular Cardiovascular: Denies chest pain or palpitations Respiratory/Chest Respiratory/Chest: Denies cough, excessive phlegm production or shortness of breath with exertion Gastrointestinal Gastrointestinal: Denies abdominal pain, nausea or vomiting Genitourinary Genitourinary: Denies dysuria Musculoskeletal Musculoskeletal: Denies joint pain or joint swelling Integumentary Integumentary: Denies rash or wounds Neurologic Neurologic: Denies focal weakness, numbness or tingling Psychiatric Psychiatric: Denies anxiety, auditory hallucinations, depression, homicidal ideation or suicidal ideation Vital Signs Vital Signs Vital Signs: 04/14/25 16:42 Temperature 97.1 F L Temperature Source Temporal Pulse Rate 116 H Respiratory Rate 18 Blood Pressure 97/71 Blood Pressure Mean 79 Blood Pressure Source Monitor Blood Pressure Position Sitting Blood Pressure Location Left Arm Pulse Ox 96 Oxygen Delivery Method Room Air Weight Weight: 77.139 kg Body Mass Index (BMI) 25.8 Physical Exam Const alert General Appearance: cooperative HEENT normocephalic Eyes PERRL and EOMs intact bilaterally Neck supple, no JVD and no carotid bruits Resp normal respiratory effort, normal air movement and clear to auscultation bilaterally Cardio regular rate and regular rhythm GI normal to inspection, nondistended, normoactive bowel sounds, non-tender and non-distended Extremity normal capillary refill Extremity Narrative: Right foot dressed. Right upper extremity midline. General Extremity: Negative for edema Skin no rashes or lesions noted Skin Narrative: Abdominal incision, right groin incision, right leg incision c/d/i. General Skin Exam: no breakdown Psych affect normal Appearance: appropriate Results Lab / Micro Data 04/17/25 06:14 04/15/25 06:52 Assessment & Plan Assessment/Plan (1) Debility: (2) Foot osteomyelitis, right: (3) PAOD (peripheral arterial occlusive disease): (4) Coronary artery disease: (5) Type 2 diabetes mellitus with hyperglycemia: (6) Hyperlipidemia: (7) Tobacco abuse: PLAN: Plan 74 year old male with below past medical history hospitalized for right foot osteomyelitis, underwent partial 1st ray amputation 03/31/2025, complicated by right lower extremity paod, underwent revascularization 04/06/2025, surgical culture Prevotella, admitted to TCU with debility, here for rehabilitation, strengthening, intravenous antibiotics, prior to discharge home alone. * Debility - PT/OT. * Pain - Tylenol 1000mg q6 prn pain (1-5), Oxycodone 5mg q4 prn pain (6-10). * Bowel - senna/colace 2 tablets bid, Magnesium citrate 300mL daily prn. * Adult immunization - Administer pneumonia vaccine, covid vaccine, flu vaccine as appropriate. * DVT prophylaxis - Lovenox 40mg sc daily. * Right foot osteomyelitis s/p right partial 1st ray amputation - Zosyn 3.375gm iv q8 thru 05/05/2025. * Right lower extremity paod s/p revascularization - Aspirin 81mg daily. * Hyperlipidemia - Atorvastatin 80mg qhs. * Diabetes Mellitus II - Metformin XR 1000mg daily. * CAD - Metoprolol succinate 12.5mg daily. * GERD - Pantoprazole 40mg daily.
[2025-04-14 19:00] VITALS: PULSE 69
[2025-04-14] MEDS: Piperacil/Tazobactam 3.375 GM in 0.9% Normal Saline (50mL MB+) 50 ML IV (22:36)
[2025-04-14] MEDS: 0.9% Saline Lock 10 ML Syringe IV (22:36)
[2025-04-15] MEDS: 0.9% Saline Lock 10 ML Syringe IV ×2 (05:05→22:51)
[2025-04-15] MEDS: Piperacil/Tazobactam 3.375 GM in 0.9% Normal Saline (50mL MB+) 50 ML IV ×3 (05:14→23:03)
[2025-04-15] MEDS: 0.9% Normal Saline (250mL Bag) 250 ML 15 ML IV (06:29)
[2025-04-15 07:22] LABS: Hematocrit 29.5 % (40-54); Hemoglobin 9.4 g/dL (13.0-16.5); Immature Granulocytes Count 0.090 X10^3/uL (0.0-0.0); Mean Corp Hgb Conc 31.9 g/dL (32-36); Mean Corpuscular Volume 88.3 fL (80-94); Mean Platelet Vol. 10.0 fl (6.2-12.0); NRBC Flagged by Analyzer 0 % (0-5); Platelet Count 416 K/mm3 (150-450); RBC Distribution Width CV 15.3 % (11.6-14.6); RBC Distribution Width SD 48.1 fl (35.1-43.9); Red Blood Count 3.34 M/mm3 (4.6-6.2); White Blood Count 10.5 K/mm3 (4.4-11.0)
[2025-04-15 07:56] LABS: Anion Gap 11 (5-15); BUN 14 mg/dL (4-19); BUN/Creat Ratio 13.6 RATIO (10-20); Calcium,Total 8.8 mg/dL (7.6-11.0); Carbon Dioxide 23.2 mmol/L (21.0-32.0); Chloride 103 mmol/L (98-108); Estimated Creatinine Clearance 64.60 ml/min (50-250); Glucose 178 mg/dL (70-99); Potassium 4.4 mmol/L (3.3-5.1)
[2025-04-15 09:14] VITALS: BP 92/63; PULSE 119; RESP 17; TEMP 36.3; O2SAT 97
[2025-04-15] MEDS: Senna/Docusate Sodium 1 Tablet 2 TABLET PO ×2 (09:22→22:49)
[2025-04-15] MEDS: metFORMIN (XR) 500 MG Tablet 1000 MG PO (09:22)
[2025-04-15] MEDS: Tuberculin,Purif.prot.deriv. 50 TU/ML Vial 0.1 ML ID (09:23)
[2025-04-15 13:12] VITALS: BP 87/62; PULSE 89
[2025-04-16] MEDS: 0.9% Saline Lock 10 ML Syringe IV ×2 (05:22→21:46)
[2025-04-16] MEDS: Piperacil/Tazobactam 3.375 GM in 0.9% Normal Saline (50mL MB+) 50 ML IV ×3 (05:37→21:46)
[2025-04-16 10:09] VITALS: BP 91/67; PULSE 125; RESP 17; TEMP 36.2; O2SAT 96
[2025-04-16] MEDS: metFORMIN (XR) 500 MG Tablet 1000 MG PO (10:11)
[2025-04-16 10:20] VITALS: PULSE 128
[2025-04-16] MEDS: Metoprolol(XL)Succ 25 MG Tablet 12.5 MG PO (10:20)
--- NOTE | 2025-04-16 10:23 | NURSING ---
notified dr lynch pt b/b -128HR- 12.5mg metoprolol scheduled- dr hansen to give metoprolol
[2025-04-17] MEDS: Piperacil/Tazobactam 3.375 GM in 0.9% Normal Saline (50mL MB+) 50 ML IV ×3 (05:30→22:36)
[2025-04-17] MEDS: 0.9% Saline Lock 10 ML Syringe IV ×3 (05:31→22:28)
[2025-04-17 06:32] LABS: Hematocrit 31.7 % (40-54); Hemoglobin 9.9 g/dL (13.0-16.5)
--- NOTE | 2025-04-17 07:26 | NURSING ---
Called and left VM with [facility] and requested return call, updated them resident will not make it to appt today at 0815.
--- NOTE | 2025-04-17 07:38 | PHA.CONS_ITS ---
Documented by User: Jose Daniel Anaya 04/17/25 08:51 TCU RX Drug Regimen Review Subjective/Objective Subjective/Objective Subjective: TCU Admission. 74 year old male hospitalized for right foot osteomyelitis. Underwent partial 1st ray amputation 03/31/2025, complicated by right lower extremity paod, underwent revascularization 04/06/2025, surgical culture Prevotella. Admitted to TCU with debility, here for rehabilitation, strengthening, intravenous antibiotics, prior to discharge home alone. Objective: Allergies No Known Allergies Allergy (Verified 07/08/22 14:14) Current Medications Generic Name Dose Route Start Last Admin Trade Name Freq PRN Reason Stop Dose Admin Acetaminophen 1,000 mg 04/14/25 19:01 Acetaminophen 500 Mg Tablet PO Q6H PRN PRN Pain Score 1-10 Aspirin 81 mg 04/15/25 08:00 04/16/25 10:11 Aspirin 81 Mg Tab.Chew PO 81 mg BREAKFAST CHAO Administration Atorvastatin Calcium 80 mg 04/14/25 22:00 04/16/25 21:46 Atorvastatin Calcium 80 Mg Tablet PO 80 mg QHS CHAO Administration Enoxaparin Sodium 40 mg 04/15/25 06:00 04/17/25 05:25 Enoxaparin 40 Mg/0.4 Ml Syringe SC 40 mg DAILY@0600 CHAO Administration Piperacillin Sod/Tazobactam 50 mls @ 12.5 mls/hr 04/14/25 22:00 04/17/25 05:30 Sod 3.375 gm/ Sodium Chloride IV 05/05/25 22:01 12.5 mls/hr Q8 CHAO Administration Sodium Chloride 250 mls @ 15 mls/hr 04/15/25 04:15 04/17/25 05:28 IV 0 mls/hr .[id number] PRN Infusion Saline Flush Magnesium Citrate 300 ml 04/14/25 19:01 Magnesium Citrate 300 Ml PO DAILY PRN Constipation Metformin HCl 1,000 mg 04/15/25 08:00 04/16/25 10:11 Metformin (Xr) 500 Mg Tablet PO 1,000 mg DAILYCM CHAO Administration Metoprolol Succinate 12.5 mg 04/15/25 10:00 04/16/25 10:20 Metoprolol(Xl)Succ 25 Mg Tablet PO 12.5 mg DAILY CHAO Administration Protocol Oxycodone HCl 5 mg 04/14/25 19:02 Oxycodone 5 Mg Tablet PO Q4H PRN PRN Pain Score 6-10 or Pre PT/OT Pantoprazole Sodium 40 mg 04/15/25 10:00 04/16/25 10:11 Pantoprazole Sodium 40 Mg Tablet PO 40 mg DAILY CHAO Administration Senna/Docusate Sodium 2 tablet 04/14/25 22:00 04/16/25 21:47 Senna/Docusate Sodium 1 Tablet PO Not Given BID CHAO Sodium Chloride 10 - 40 ml 04/14/25 18:42 0.9 % Nacl (Sterile) Posiflush 10 Ml IV UD PRN Port access or dressing change Sodium Chloride 10 - 40 ml 04/14/25 18:42 04/17/25 05:31 0.9% Saline Lock 10 Ml Syringe IV 10 ml UD PRN Administration Midline Flush Tuberculin PPD 0.1 ml 04/22/25 10:00 Tuberculin,Purif.Prot.Deriv. 50 Tu/Ml Vial ID 04/22/25 10:01 X1 ONE Problem List Type 2 diabetes mellitus with hyperglycemia (Acute) Coronary artery disease (Acute) PAOD (peripheral arterial occlusive disease) (Acute) Foot osteomyelitis, right (Acute) Debility (Acute) Hyperlipidemia (Acute) Tobacco abuse (Acute) Vital Signs Temp Pulse Resp BP Pulse Ox O2 Del Method 97.2 F L 128 H 17 91/67 96 Room Air 04/16/25 10:09 04/16/25 10:20 04/16/25 10:09 04/16/25 10:09 04/16/25 10:09 04/17/25 07:35 Oxygen Delivery Method Room Air Weight: 77.139 kg Body Mass Index (BMI) 25.8 Sodium 137 mmol/L (133-145) 04/15/25 06:52 Potassium 4.4 mmol/L (3.3-5.1) 04/15/25 06:52 Chloride 103 mmol/L (98-108) 04/15/25 06:52 Carbon Dioxide 23.2 mmol/L (21.0-32.0) 04/15/25 06:52 Anion Gap 11 (5-15) 04/15/25 06:52 BUN 14 mg/dL (4-19) 04/15/25 06:52 Creatinine 1.00 mg/dL (0.70-1.20) 04/15/25 06:52 Est GFR (MDRD) Non-Af 80 (>60) 04/15/25 06:52 BUN/Creatinine Ratio 13.6 RATIO (10-20) 04/15/25 06:52 Glucose 178 mg/dL (70-99) H 04/15/25 06:52 Assessment/Plan: 1. Pain - Tylenol 1000mg PO Q6H PRN pain (1-5) (No doses given), Oxycodone 5mg PO Q4H PRN pain (6-10) (No doses given). Please monitor pain levels and PRN medication usage, somnolence, constipation, nausea, and total daily acetaminophen intake. 2. Bowel - senna/colace 2 tablets PO BID, Magnesium citrate 300mL daily PO PRN constipation (No doses given). Last bowel movement: 04/16/25. Please monitor bowel movements, PRN medication usage, diarrhea, abdominal pain, and electrolyte abnormalities. Electrolytes of note: K: 4.4, Na: 137, Cl: 103. 3. DVT prophylaxis - Lovenox 40mg SQ daily. Please monitor for bleeding such as GI bleeding (dark tarry stool), blood in the urine, (pink tinged urine), and bleeding from the gums. H/H/P: 9.9/31.7/416. 4. Right foot osteomyelitis s/p right partial 1st ray amputation - Zosyn 3.375gm IV q8 thru 05/05/2025. Please monitor for signs/symptoms of worsening infection such as increasing WBC (04/15: 10.5), fever, malaise, and foul smelling odor from amputation site. 5. Right lower extremity paod s/p revascularization - Aspirin 81mg PO daily. Please monitor for abdominal pain, headache, ulcers, and GI bleeding. BEERS list medication with a listed adverse effect of GI bleeding and peptic ulcers. 6. Hyperlipidemia, CAD - Metoprolol succinate 12.5mg PO daily, Atorvastatin 80mg PO QHS. Please monitor for fatigue, myalgias, joint pain, bradycardia, hypotension, and drowsiness. Last 24Hr BP: 87/62-92/63, Last 24Hr: 89-128 HR 7. Diabetes Mellitus II - Metformin XR 1000mg PO daily. Please monitor for signs and symptoms of hypoglycemia, blood sugar levels, diarrhea, and abdominal pain. Metformin carries a Black Box Warning for lactic acidosis. 8. GERD - Pantoprazole 40mg PO daily. Please monitor for breakthrough indigestion and upset stomach. BEERS list medication with a listed adverse e ffect of increased risk of C. diff infection and bone fractures. Please minimize fall risks. Assessment/Plan for indications treated with psychotropic medications: Resident is not prescribed scheduled or prn psychotropic medications at the time of this drug regimen review. Medical chart and medication regimen reviewed. The following medication irregularities or issues were identified: Please consider ordering a lipid panel with weekly labs. Date Date of Note: 04/17/25 Documented by User: Dr. Buzz Clayton MD 04/17/25 08:01 TCU RX Drug Regimen Review Provider Comments Provider responsibility Provider Comments to Recommendations by Pharmacy Agree
[2025-04-17 09:07] VITALS: BP 97/82; PULSE 89; RESP 16; TEMP 36.3; O2SAT 97
[2025-04-17] MEDS: metFORMIN (XR) 500 MG Tablet 1000 MG PO (09:10)
[2025-04-17 10:55] VITALS: PULSE 89
--- NOTE | 2025-04-17 10:57 | NURSING ---
dr triplett updated on low BP, hold Toprol XL this AM
--- NOTE | 2025-04-17 11:14 | NURSING ---
Offered covid vaccine, VIS provided. Resident declines.
--- NOTE | 2025-04-17 11:38 | CASEMGMT ---
Addendum entered by Stephany Patel 04/17/25 16:24: [facility] can accept with SOC 04/20 at 0800, but not 04/21. - COLE phoned dtr to update on SOC date, with tentative DC date 04/19, pending [facility] delivery of supplies. needs to write script and SW to send to [facility], then the referral will be finalized. SW answered dtr's questions regarding HHC and educated to homebound restrictions. Explained heel WBS to assist with transfers only, limiting long distance ambulation - max 20ft, and wearing surgical shoe. Dtr appreciative of assistance and information. SW will follow up with dtr tomorrow to finalize DC date. Original Note: Social Work PANTRY STEWARD/STEWARDESS notified this worker that pt was requesting to DC home this week and would go to his dtr's house and she would administer IV ATB. - COLE phoned dtr to inquire about DC plan. Dtr confirmed that she agreed to take care of pt. COLE educated to IV ATB Q8 (approx [phone]), a HHC RN would assist the day after DC for SOC first dose, and then weekly after that. Plus, pt has daily wound dressing changes. SW offered for dtr to attend training with nurse. Dtr agreed to attend to training this evening and aware of care pt will need. SW explored dtr's home set up. Dtr stated she has a 2 story home, but pt would stay on the first floor, sleep on the couch, and it was 20 steps from the couch to the bathroom. Bathroom does not have grab bars but has a WIS, and pt has a walker. SW offered to provide resources for grab bars. Dtr voiced she wants to ensure pt is safe to DC home. SW agreed and will follow up with PANTRY STEWARD/STEWARDESS on physical abilities thus far. Pt is NWB on RLE and PANTRY STEWARD/STEWARDESS looking for clarification on wearing surgical shoe. Dtr stated [facility] did not have pt wear it, but there is one in pt's TCU room. SW to pass along. COLE explained DC coordination can begin, but unsure of a DC date as multiple entities need to be involved and ensure a smooth DC. Dtr expressed understanding. SW to refer to [facility] for IV ATB. Dtr stated [place] spoke to [facility] and it was $99 per week, which pt can afford. SW to also clarify stop date as dtr stated it is 04/25 and TCU MAR has 05/05. SW explained the goal is for HHC to have SOC next day. Dtr agreed. SW provided list of skilled HHC agencies within geographical area, INN with insurance, that include quality and resource data via [employer] guide via email. Dtr to select preferences and this worker will place referrals. SW will follow up with charge attendant and PANTRY STEWARD/STEWARDESS, and speak with pt. Dtr appreciative and will follow up with pt as well. - SW spoke with charge attendant for clarification on orders and request script. Unit nurse can assist with IV and wound training this evening to dtr. Will await functional outcomes from PANTRY STEWARD/STEWARDESS. SW to refer to [facility] via [facility]. Will continue to follow. Stephany Patel MSW CIGAR MAKING SUPERVISOR
--- NOTE | 2025-04-17 12:31 | NURSING ---
Cath Lab Tech Note; Activity Asset: David Tamayo prefers to be called Urbano. Urbano stated he has all he needs and wont be her long, not interested in activities. He has a smartphone and will read the paper and watch tv. Staff will respect his right to do independent activities in his room and continue to offer room activities.
--- NOTE | 2025-04-17 13:35 | NURSING ---
Addendum entered by Ashia García 04/17/25 15:03: Call back from [place] with surgeon, orders to have surgical shoe when up, only able to do partial WB to heel for transfers only. Original Note: Spoke with Dr. Vick's staff at ID office, they will fax over updated script for antibiotics for DC. Left VM with surgeon's office requesting clarification on needing a surgical shoe and WB for DC.
--- NOTE | 2025-04-17 15:23 | NURSING ---
faxed labs to Infectious disease per his request at [facility] infectious disease.
--- NOTE | 2025-04-17 16:28 | CASEMGMT ---
Social Work SW met with patient to complete initial assessment and finalize DC plans. Introduced self and role. Pt confirmed request to DC to dtr's home 04/18 and SW educated to [facility] providing IV ATB and supplies, and [facility] for PT/OT/SN with SOC 04/19 at 0800 to teach and administer first dose of ATB. Pt expressed understanding and will await final DC date from this worker. Stephany Patel RING STAMPER SENIOR CIVIL ENGINEER
--- NOTE | 2025-04-17 16:30 | CASEMGMT ---
Social Work SW completed BIMS () and PHQ-2 () for MDS assessment. Stephany Patel CABLE MAINTAINER CARTOGRAPHIC AIDE
--- NOTE | 2025-04-17 18:35 | NURSING ---
teaching done with daughter for midline and foot. verbalized understanding, teaching booklet given.
[2025-04-18] MEDS: Piperacil/Tazobactam 3.375 GM in 0.9% Normal Saline (50mL MB+) 50 ML IV ×3 (05:02→21:17)
[2025-04-18 08:27] VITALS: BP 101/71; PULSE 120; RESP 18; TEMP 36.3; O2SAT 100
[2025-04-18 08:31] VITALS: PULSE 120
[2025-04-18] MEDS: Metoprolol(XL)Succ 25 MG Tablet 12.5 MG PO (08:31)
[2025-04-18] MEDS: metFORMIN (XR) 500 MG Tablet 1000 MG PO (08:31)
--- NOTE | 2025-04-18 08:38 | CASEMGMT ---
Addendum entered by Stephany Patel 04/18/25 14:27: Script received and stop date is 04/25. SW updated IDT and [facility]. SW phoned dtr to notify. Original Note: Social Work SW phoned dtr to follow up on teaching last evening. Dtr states the teaching went well and she feels comfortable. SW informed that once the ID Dr writes script for ATB, that can be processed with [facility], and DC can be confirmed for 04/19. Dtr appreciative. SW inquired about w/c at DC. Dtr denied. SW educated that if anything else is needed after DC, the PCP can assist. Dtr appreciative. Plan: DC tentative DC 04/19, [facility] PT/OT/SN, IV ATB Stephany Patel BUSINESS CONTINUITY SPECIALIST HOSPICE MANAGER
[2025-04-18 08:53] LABS: Cholesterol 81 mg/dL (<=200); Low Density Lipoprotein Calc. 28 mg/dL; Triglycerides 113 mg/dL; Very Low Density Lipoprotein 23 mg/dL (5-40); cholesterol:hdl ratio screen 2.69
[2025-04-18 11:07] VITALS: PULSE 104
--- NOTE | 2025-04-18 13:01 | NURSING ---
Followed up with infectious disease office, they report they ask physician and he said original script is correct, zosyn to be done on 04/25/25. Copy of script give to Stephany IVAN
[2025-04-18] MEDS: 0.9% Saline Lock 10 ML Syringe IV ×2 (13:12→21:18)
--- NOTE | 2025-04-18 20:10 | PCM.DC.SUM ---
Providers Date of Admission: 04/14/25 Primary Care Physician: DENIZ Pritchett Consultations 04/17/25 06:35 Consult: Onc/Wound/steam clean machine operator Routine Comment: Reason for Consult:: r great toe gangrene Reason For Visit: GANGRENE GREAT R TOE Diagnosis Discharge Diagnosis (1) Debility: Status: Acute Code(s): R53.81 - Other malaise (2) Foot osteomyelitis, right: Status: Acute Code(s): M86.9 - Osteomyelitis, unspecified (3) PAOD (peripheral arterial occlusive disease): Status: Acute Code(s): I77.9 - Disorder of arteries and arterioles, unspecified (4) Coronary artery disease: Status: Acute Code(s): I25.10 - Atherosclerotic heart disease of [place] coronary artery without angina pectoris (5) Type 2 diabetes mellitus with hyperglycemia: Status: Acute Code(s): E11.65 - Type 2 diabetes mellitus with hyperglycemia (6) Hyperlipidemia: Status: Acute Code(s): E78.5 - Hyperlipidemia, unspecified (7) Tobacco abuse: Status: Acute Code(s): Z72.0 - Tobacco use Plan 74 year old male with below past medical history hospitalized for right foot osteomyelitis, underwent partial 1st ray amputation 03/31/2025, complicated by right lower extremity paod, underwent revascularization 04/06/2025, surgical culture Prevotella, admitted to TCU with debility, here for rehabilitation, strengthening, intravenous antibiotics, prior to discharge home alone. Debility - PT/OT. Pain - Tylenol 1000mg q6 prn pain (1-5), Oxycodone 5mg q4 prn pain (6-10). Bowel - senna/colace 2 tablets bid, Magnesium citrate 300mL daily prn. Adult immunization - Administer pneumonia vaccine, covid vaccine, flu vaccine as appropriate. DVT prophylaxis - Lovenox 40mg sc daily. Right foot osteomyelitis s/p right partial 1st ray amputation - Zosyn 3.375gm iv q8 thru 05/05/2025. Right lower extremity paod s/p revascularization - Aspirin 81mg daily. Hyperlipidemia - Atorvastatin 80mg qhs. Diabetes Mellitus II - Metformin XR 1000mg daily. CAD - Metoprolol succinate 12.5mg daily. GERD - Pantoprazole 40mg daily. Medications at Discharge Home Medications atorvastatin 80 mg tablet 80 mg PO DAILY [facility] 12/17/21 metformin 500 mg tablet,extended release 24 hr 1,000 mg PO DAILY diabetes 01/08/22 clopidogrel 75 mg tablet (Plavix) 75 mg PO DAILY 07/08/22 aspirin 81 mg capsule 81 mg PO DAILY [facility] 04/14/25 metoprolol succinate 25 mg tablet,extended release 24 hr (Toprol XL) 12.5 mg PO DAILY [facility] 04/14/25 pantoprazole 40 mg tablet,delayed release 40 mg PO DAILY stomach 04/14/25 piperacillin-tazobactam 4.5 gram intravenous solution 4.5 g IV Q8H infection 04/14/25 Hospital Course Operations - (See below.) Procedures None Summary of Care Provided Minutes Spent on Discharge: 35 Hospital Course: 74 year old male with below past medical history hospitalized for right foot osteomyelitis, underwent partial 1st ray amputation 03/31/2025, complicated by right lower extremity paod, underwent revascularization 04/06/2025, surgical culture Prevotella, admitted to TCU with debility, here for rehabilitation, strengthening, intravenous antibiotics, prior to discharge home alone. Discharge to daughter's home tentative 04/19/2025, [facility] PT/OT/SN, IV antibiotics thru 04/25/2025. Physical Exam Const alert General Appearance: cooperative HEENT normocephalic Eyes PERRL and EOMs intact bilaterally Neck supple, no JVD and no carotid bruits Resp normal respiratory effort, normal air movement and clear to auscultation bilaterally Cardio regular rate and regular rhythm GI normal to inspection, nondistended, normoactive bowel sounds, non-tender and non-distended Extremity normal capillary refill Extremity Narrative: Right foot dressed. Right upper extremity midline. General Extremity: Negative for edema Skin no rashes or lesions noted Skin Narrative: Abdominal incision, right groin incision, right leg incision c/d/i. General Skin Exam: no breakdown Psych affect normal Appearance: appropriate Weight / BMI Weight Weight: 77.139 kg Body Mass Index (BMI) 25.8 ABG / Lab / Microbiology Data 04/17/25 06:14 04/15/25 06:52 Laboratory: Laboratory Results - last 24 hr 04/17/25 21:15: POC Glucose 164 H 04/18/25 05:58: POC Glucose 107 H 04/18/25 08:02: Triglycerides 113, Cholesterol 81, LDL Cholesterol, Calc 28, VLDL Cholesterol 23, HDL Cholesterol 30 L, Cholesterol/HDL Ratio 2.69 Microbiology: Microbiology 04/17/25 05:34 Nasal Secretion SARS-CoV-2 Antigen (Rapid) - Final 04/15/25 06:33 Nasal Secretion SARS-CoV-2 Antigen (Rapid) - Final D/C Instructions Discharge Activity: Return to Normal Activity, May Shower and Use Walker Weight Bearing Status: Partial weight bearing (Heel touch right foot. ) Call your doctor if you observe: Fever of 101 or Higher, Inability to urinate, Inability to have a bowel movement, Shortness of breath, Dizziness, Fainting spells, Swelling in the ankles, Chest pain and Uncontrolled pain DC O2, CPAP, BIPAP Needs Home O2 Discharge instructions: No Additional Instructions: Discharge to daughter's home tentative 04/19/2025, [facility] PT/OT/SN, IV antibiotics thru 04/25/2025. Please Follow Up With: Nahomi Rivera When: As scheduled. Meaningful Use Info Meaningful Use Meaningful Use Diagnoses (Choose all that apply): None applicable Discharge Plan Admission Admit Date/Time: 04/14/25 16:00 Primary Reason for Your Visit: Debility. Attending Provider: Buzz Clayton Chi Primary Care Provider: Mary Cannon NP Instructions Additional Instructions / Restrictions: Discharge to daughter's home tentative 04/19/2025, [facility] PT/OT/SN, IV antibiotics thru 04/25/2025. Discharge Orders/Prescriptions Prescriptions: Continued metformin 500 mg tablet extended release 24 hr 1,000 mg PO DAILY clopidogrel [Plavix] 75 mg tablet 75 mg PO DAILY atorvastatin 80 mg Tablet 80 mg PO DAILY aspirin 81 mg capsule 81 mg PO DAILY metoprolol succinate [Toprol XL] 25 mg tablet extended release 24 hr 12.5 mg PO DAILY pantoprazole 40 mg tablet,delayed release (DR/EC) 40 mg PO DAILY piperacillin-tazobactam 4.5 gram recon soln 4.5 g IV Q8H Rx Instructions: end 04/25/25 Discontinued oxycodone 5 mg capsule 5 mg PO Q8H PRN (Reason: pain) Referrals / Follow Up: Mary Cannon NP, SORTER/ASSAY TECH-C [Primary Care Provider] - Disposition Disposition (needs filled in before D/C Order can be placed): Home Health Service
[2025-04-18 21:00] VITALS: PULSE 96; RESP 18; O2SAT 99
[2025-04-19] MEDS: 0.9% Normal Saline (250mL Bag) 250 ML 15 ML IV (05:33)
[2025-04-19] MEDS: 0.9% Saline Lock 10 ML Syringe IV (05:34)
[2025-04-19] MEDS: Piperacil/Tazobactam 3.375 GM in 0.9% Normal Saline (50mL MB+) 50 ML IV ×2 (05:34→14:10)
[2025-04-19 05:56] VITALS: PULSE 90; RESP 16; O2SAT 93
--- NOTE | 2025-04-19 08:38 | NURSING ---
Early Morning Babysitter Note; MDS for 04/19/2025 Complete
[2025-04-19 10:23] VITALS: BP 93/72; PULSE 99; RESP 16; TEMP 36.2; O2SAT 97
[2025-04-19 10:26] VITALS: PULSE 99
[2025-04-19] MEDS: metFORMIN (XR) 500 MG Tablet 1000 MG PO (10:26)
[2025-04-19] MEDS: Metoprolol(XL)Succ 25 MG Tablet 12.5 MG PO (10:26)
[2025-04-19] MEDS: 0.9 % NaCl (Sterile) Posiflush 10 mL IV (10:27)
[2025-04-19 17:40] VITALS: BP 94/57; PULSE 100; RESP 17; TEMP 36.4; O2SAT 97
--- NOTE | 2025-04-26 08:26 | MDS.RN ---
Information for the MDS was obtained from review of the clinical record, interview of resident, staff, and direct observation of resident?s care.
== END 2025-04-19 17:55 | disposition home health service (06) | DRG 559 ==
PROVIDERS: Admitting Provider Family Medicine Geriatric Medicine; PCP Clinical Nurse Specialist; Visit Provider Family Medicine Geriatric Medicine
DX: Z47.81 Encounter for orthopedic aftercare following surgical amputation (principal); A48.0 Gas gangrene; M86.8X7 Other osteomyelitis, ankle and foot; E11.52 Type 2 diabetes mellitus with diabetic peripheral angiopathy with gangrene; E11.51 Type 2 diabetes mellitus with diabetic peripheral angiopathy without gangrene; B96.89 Other specified bacterial agents as the cause of diseases classified elsewhere; I10 Essential (primary) hypertension; E11.65 Type 2 diabetes mellitus with hyperglycemia; E11.69 Type 2 diabetes mellitus with other specified complication; Z89.431 Acquired absence of right foot; I25.10 Atherosclerotic heart disease of native coronary artery without angina pectoris; F17.210 Nicotine dependence, cigarettes, uncomplicated; K21.9 Gastro-esophageal reflux disease without esophagitis; E78.5 Hyperlipidemia, unspecified; Z79.899 Other long term (current) drug therapy; Z95.5 Presence of coronary angioplasty implant and graft; Z79.82 Long term (current) use of aspirin; Z79.02 Long term (current) use of antithrombotics/antiplatelets; Z79.84 Long term (current) use of oral hypoglycemic drugs
CPT/HCPCS: 36415; 80048; 80061; 82962; 85014; 85018; 85025; 87811; 97110; 97116; 97162; 97166; 97530; 97535; 97802; 99406; A4216

== ENCOUNTER → 2025-04-20 | Outpatient (CLI) | payer MEDICARE, SELFPAY ==
[2025-04-20 16:09] LABS: Hematocrit 31.9 % (40-54); Hemoglobin 10.1 g/dL (13.0-16.5); Mean Corp Hgb Conc 31.7 g/dL (32-36); Mean Corpuscular Volume 87.4 fL (80-94); Mean Platelet Vol. 10.5 fl (6.2-12.0); Platelet Count 390 K/mm3 (150-450); RBC Distribution Width CV 15.1 % (11.6-14.6); RBC Distribution Width SD 48.1 fl (35.1-43.9); Red Blood Count 3.65 M/mm3 (4.6-6.2); White Blood Count 10.3 K/mm3 (4.4-11.0)
[2025-04-20 17:02] LABS: Anion Gap 16 (5-15); BUN 14 mg/dL (4-19); BUN/Creat Ratio 12.2 RATIO (10-20); CRP 19.80 mg/L (0.0-3.0); Calcium,Total 9.4 mg/dL (7.6-11.0); Carbon Dioxide 20.7 mmol/L (21.0-32.0); Chloride 99 mmol/L (98-108); Glucose 170 mg/dL (70-99); Potassium 4.3 mmol/L (3.3-5.1)
== END | disposition home or self-care (01) ==
PROVIDERS: PCP Clinical Nurse Specialist; Referring Provider Internal Medicine; Visit Provider Internal Medicine
DX: M86.172 Other acute osteomyelitis, left ankle and foot (principal)
CPT/HCPCS: 36415; 80048; 85027; 85652; 86140